=== PATIENT | female | born 1970 | race Caucasian/White ===

== ENCOUNTER 2019-12-22 15:55 | Outpatient (CLI) | payer OTHER, SELFPAY ==
--- NOTE | ~2019-12-22 | US_ITS ---
EXAMINATION: US thyroid EXAM DATE: 12/22/2019 16:40 INDICATION: Follow-up thyroid nodule. TECHNIQUE: Multiple grayscale and Doppler images of the thyroid were obtained (by a technologist who performed the scan) and subsequently reviewed. Individual nodules may be reported using TI-RADS syst em as designated by the 2017 ACR White Paper TI-RADS committee. There is no prior study for comparis on. FINDINGS: The right thyroid lobe measures 1.2 x 3.5 x 0.7 cm, the left measuring 0.9 x 3.1 x 0.6 cm. Relatively homogeneous thyroid echogenicity. The measurements are within normal size limits. There is a right thyroid lobe midpole measuring 5 x 4 x 4 millimeters, solid (2 points), hyperechoic (1 point), wider than tall, smooth margin, containing punctate echogenic foci (3 points), category TR 4 for this nodule. On previous study there was a much larger heterogeneous region in this location m easuring 2.2 cm which is no longer identified, or there has been significant interval decrease in siz e of that nodule which is now a nodule present today. IMPRESSION: 1. Small right thyroid lobe nodule requiring no further follow-up. Reviewed, dictated and finalized at location B. [employer]
== END 2019-12-22 15:56 | disposition home or self-care (01) ==
PROVIDERS: Visit Provider Otolaryngology
DX: E04.9 Nontoxic goiter, unspecified (principal)
CPT/HCPCS: 76536

== ENCOUNTER 2019-12-26 12:11 | Outpatient (CLI) | payer OTHER, SELFPAY ==
[2019-12-26 14:03] LABS: Free T4 Free Thyroxine 0.96 ng/mL (0.78-2.19)
[2019-12-26 15:13] LABS: Free T4 Free Thyroxine Reflex 0.93 ng/dL (0.78-2.19)
[2019-12-26 16:02] LABS: Total Triiodothyronine (T3) 0.96 NG/ML (0.97-1.69)
[2019-12-29 03:29] LABS: Thyroid Peroxidase Antibodies <1 IU/mL (<9)
[2019-12-29 19:56] LABS: Triiodothyronine T3 Free 2.4 pg/mL (2.3-4.2)
== END 2019-12-26 12:12 | disposition home or self-care (01) ==
PROVIDERS: Visit Provider Otolaryngology
DX: E04.9 Nontoxic goiter, unspecified (principal)
CPT/HCPCS: 36415; 84439; 84443; 84480; 84481; 86376

== ENCOUNTER 2022-02-21 10:02 | Emergency (ER) | payer OTHER, SELFPAY ==
[2022-02-21 10:15] VITALS: BP 125/66; PULSE 61; RESP 18; TEMP 36.4; O2SAT 100
--- NOTE | 2022-02-21 10:33 | ED.URI ---
HPI - URI/Sore Throat General Chief Complaint: Upper Respiratory Infection Stated Complaint: sorethroat Source: patient Mode of arrival: ambulatory Limitations: no limitations History of Present Illness HPI Narrative: 51-year-old female presents to [facility] with complaints of sore throat, postnasal drip and dry cough for the past 3 days. Patient has been taking [id number] ibuprofen and Tylenol with minimal relief. Patient reports that she does have a history of strep throat. 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 Patient denies fever, bodies, chills, nausea, vomiting or diarrhea. Patient is a non-smoker. Patient denies recent travel. MD elicited complaint: cough and sore throat Onset (ago): day(s) (3) Able to tolerate fluids by mouth: Yes Treatments prior to arrival: acetaminophen and ibuprofen Related Data Allergies Allergy/AdvReac Type Severity Reaction Status Date / Time Penicillins Allergy Unknown Rash Verified 02/21/22 10:27 Quinolones Allergy Unknown HIVES Verified 02/21/22 10:27 vancomycin Allergy Unknown ITCHEY Verified 02/21/22 10:27 Review of Systems ENT: Denies dysphagia, Denies dizziness, Denies nasal congestion and Reports sore throat Comments: Postnasal drip Cardiovascular: Cardiovascular: Denies chest pain, Denies rapid heart rate and Denies slow heart rate Respiratory: Respiratory: Denies chest congestion, Reports cough, Denies dyspnea and Denies wheezing Gastrointestinal: Gastrointestinal: Denies abdominal pain, Denies diarrhea, Denies nausea and Denies vomiting Integumentary/Breasts: Skin/Breast: Denies rash Endocrine: Endocrine: Denies fatigue PMFSH Family History Family History Mother Hypertension Family history of hypothyroidism Father Family history of elevated blood lipids Family history of cardiovascular disease Social History Social History Smoking status: Never smoker Alcohol intake: current Comments At time of signature, I agree with nursing past medical, surgical, social and family history. There is no relevant family history pertinent to the presenting complaint. Exam Const: General: no acute distress and alert Nutritional Appearance: well nourished Orientation/consciousness: patient oriented x3 HENMT: Ears: external ears normal, TM's normal bilaterally and EAC's normal General nose exam: Normal nares present Mouth: Yes Normal oral and palatal mucosa present, Yes lip normal and Yes moist mucous membranes Teeth and gingiva: dentition normal Throat: uvula midline Other: No swelling or exudate noted to tonsils. Posterior pharynx is erythematous. No swelling noted. Neck: Neck: normal visual inspection Resp: Effort & Inspection: normal respiratory effort, not labored, not tachypneic and no use of accessory muscles Auscultation: clear to auscultation bilaterally Cardio: Rate: regular rate, not bradycardic and not tachycardic Rhythm: regular rhythm Skin: General skin exam: normal color Rashes: no rashes Wounds: no wounds Neuro: General: patient oriented x3, moves all extremities and no meningeal signs Psych: Appearance: grossly normal Mental Status: mental status grossly normal Affect: normal affect Attitude: cooperative Thought content: Yes Normal thought content present Course Course Level of Care: Express Care Visit Vital Signs Vital signs: Vital Signs Temperature 36.4 C 02/21/22 10:15 Pulse Rate 61 02/21/22 10:15 Respiratory Rate 18 02/21/22 10:15 Blood Pressure 125/66 02/21/22 10:15 Pulse Oximetry 100 02/21/22 10:15 Temperature 36.4 C 02/21/22 10:15 Pulse Rate 61 02/21/22 10:15 Respiratory Rate 18 02/21/22 10:15 Blood Pressure 125/66 02/21/22 10:15 Pulse Oximetry 100 02/21/22 10:15 MDM - URI/Sore Throat MDM Narrative Medical decision making narrative: Rapid strep was
== END 2022-02-21 10:41 | disposition home or self-care (01) ==
PROVIDERS: Emergency Provider Nurse Practitioner Family
DX: J02.9 Acute pharyngitis, unspecified (principal)
CPT/HCPCS: 87081; 87880; 99213; G0463

== ENCOUNTER 2022-09-12 10:01 | Emergency (ER) | payer OTHER, SELFPAY ==
--- NOTE | 2022-09-12 10:11 | ED.URI ---
HPI - URI/Sore Throat General Chief Complaint: Upper Respiratory Infection Stated Complaint: Cough,Bilateral Ear Irritation Time Seen by Provider: 09/12/22 10:15 Source: patient and RN notes reviewed Mode of arrival: ambulatory Limitations: no limitations History of Present Illness HPI Narrative: 51-year-old female presenting for complaint of sinus congestion and drainage, cough, and bilateral ear pressure for 10 days. Endorses cough has been worsening and is productive of green sputum. Denies Shortness of breath, wheezing, nausea, vomiting, diarrhea, fevers or chills. She is taking Motrin and using nasal rinses for symptoms. MD elicited complaint: cough Related Data Home Medications Medication Instructions Recorded Confirmed estradiol-norethindrone acet 0.5 1 tablet PO DAILY 09/12/22 09/12/22 mg-0.1 mg tablet Allergies Allergy/AdvReac Type Severity Reaction Status Date / Time Penicillins AdvReac Mild Rash Verified 09/12/22 10:04 Quinolones AdvReac Mild HIVES Verified 09/12/22 10:04 vancomycin AdvReac Mild ITCHEY Verified 09/12/22 10:04 Review of Systems Review of Systems: ROS per HPI PMFSH Family History Family History Mother Hypertension Family history of hypothyroidism Father Family history of elevated blood lipids Family history of cardiovascular disease Social History Social History Smoking status: Never smoker Alcohol intake: current Drinks per week: 2 Substance use type: does not use Exam Narrative: GENERAL: Ill-appearing, nontoxic EYES: PERRLA, conjunctivae clear ENT: Mucous membranes moist. TMs pearly mendoza with dull light reflex bilaterally; no tragal tenderness. Oropharynx erythematous without lesions or exudate, no drooling, no hoarseness, no trismus, uvula midline. CHEST: Clear to auscultation, breath sounds equal. Frequent harsh nonproductive cough HEART: Regular rate and rhythm. No murmur heard. SKIN: Warm, dry, no rash. NEURO: Alert and oriented x3. PSYCH: Normal mood and affect Course Course Emergency Course: Patient is aware of diagnosis, understands and agrees to treatment plan. Anticipatory guidance given. Patient agrees to follow-up as directed and is aware of reasons to seek care at the emergency department. Portions of this record may have been created with voice recognition software Level of Care: Express Care Visit Vital Signs Vital signs: Vital Signs Temperature 97.5 F L 09/12/22 10:13 Pulse Rate 65 09/12/22 10:13 Respiratory Rate 18 09/12/22 10:13 Blood Pressure 122/69 09/12/22 10:13 Pulse Oximetry 100 09/12/22 10:13 Oxygen Delivery Room Air 09/12/22 10:13 Temperature 97.5 F L 09/12/22 10:13 Pulse Rate 65 09/12/22 10:13 Respiratory Rate 18 09/12/22 10:13 Blood Pressure 122/69 09/12/22 10:13 Pulse Oximetry 100 09/12/22 10:13 Oxygen Delivery Room Air 09/12/22 10:13 reviewed MDM - URI/Sore Throat MDM Narrative Medical decision making narrative: Advised supportive measures and signs/symptoms to go to the ER. Pt is appropriate for outpt treatment and f/u. Differential Diagnosis Differential diagnosis: Likely upper respiratory infection, sinusitis and viral infection Discharge Plan Discharge Clinical Impression: Upper respiratory infection Patient Disposition: Home, Self-Care Condition: Stable Instructions: Antibiotic Form, Sinusitis (ED), Acute Bronchitis (ED) Additional Instructions: take medication as directed Recommend Flonase spray and Zyrtec (or Claritin/Ce) over the counter Cough syrup may cause drowsiness; avoid driving or take it at night time. Benzonatate as needed for cough Tylenol 1000mg every 8 hours as needed for pain Symptomatic treatment includes: rest, fluids, and increase humidity of the air at home. Follow up with your primary care provider
[2022-09-12 10:13] VITALS: BP 122/69; PULSE 65; RESP 18; TEMP 36.4; O2SAT 100
== END 2022-09-12 10:26 | disposition home or self-care (01) ==
PROVIDERS: Emergency Provider Nurse Practitioner Family
DX: J06.9 Acute upper respiratory infection, unspecified (principal)
CPT/HCPCS: 99213; G0463

== ENCOUNTER 2022-09-17 00:53 | Day surgery (SDC) | payer OTHER, SELFPAY ==
[2022-09-08 15:22] VITALS: BMI 26.4
--- NOTE | 2022-09-16 15:19 | PM.HPGS ---
History of Present Illness History of Present Illness Consent: Risks, benefits, and alternatives have been discussed and questions answered. Patient agrees to proceed with procedure. Chief complaint: change in bowel habits Narrative: Gloria Sorensen is a 51 year old female referred for colonoscopy. She has had change in bowel habits. Her stools vary in consistency from very hard to very soft. She also has had discomfort in the pelvic area. Her last colonoscopy was about 4 years ago she was advised to have 1 within a couple of years because the prep was not adequate. Review of Systems Review of Systems: All systems reviewed & are unremarkable except as noted in HPI and below PMFSH Past Medical History Medical History Overweight (BMI 25.0-29.9) Family History Family History Mother Hypertension Family history of hypothyroidism Father Family history of elevated blood lipids Family history of cardiovascular disease Social History Social History Smoking status: Never smoker Alcohol intake: current Drinks per week: 2 Substance use type: does not use Living arrangements: with family Meds Home Medications and Allergies Home Medications Medication Instructions Recorded Confirmed Type duloxetine 30 mg capsule,delayed 30 mg PO DAILY #90 caps 09/28/19 09/12/22 Rx release pantoprazole 40 mg tablet,delayed 40 mg PO DAILY #90 tabs 09/28/19 09/12/22 Rx release loratadine 10 mg tablet (Claritin) 10 mg PO DAILY #30 tabs 02/21/22 09/12/22 Rx benzonatate 200 mg capsule 200 mg PO TID PRN cough #20 caps 09/12/22 09/17/22 Rx doxycycline hyclate 100 mg tablet 100 mg PO BID 5 days #10 tabs 09/12/22 09/17/22 Rx estradiol-norethindrone acet 0.5 1 tablet PO DAILY 09/12/22 09/17/22 History mg-0.1 mg tablet prednisone 20 mg tablet 40 mg PO DAILY 5 days #10 tabs 09/12/22 09/17/22 Rx Allergies Allergy/AdvReac Type Severity Reaction Status Date / Time Penicillins AdvReac Mild Rash Verified 09/17/22 09:23 Quinolones AdvReac Mild HIVES Verified 09/17/22 09:23 vancomycin AdvReac Mild ITCHEY Verified 09/17/22 09:23 Exam Resp: Auscultation: clear to auscultation bilaterally Cardio: Rate: regular rate Rhythm: regular rhythm GI: GI Palp: Yes Soft to palpation and No Tenderness to palpation present (GI) Assessment and Plan Assessment and plan (1) Change in bowel habits: Code(s): R19.4 - Change in bowel habit Status: Acute Assessment and Plan: Colonoscopy with possible biopsy or polypectomy or cautery or injection of substances.
[2022-09-17 09:24] VITALS: BP 125/79; PULSE 71; RESP 20; TEMP 36.2; O2SAT 100; BMI 26.9
--- NOTE | 2022-09-17 09:26 | WPDANESEPPF ---
Anes - Initial Pre Proc Eval Procedure: Operation Date: 09/17/22 10:45 Proposed Procedures p Colonoscopy - Khadar Reid MD Date/Time: 09/17/22 09:26 Surgeon: Khadar Reid MD Pre Op Diagnosis: change in bowel habits Patient Data Age: 51 Gender: F Height: 1.63 m Weight: 70 kg Allergies Allergy/AdvReac Type Severity Reaction Status Date / Time Penicillins AdvReac Mild Rash Verified 09/17/22 09:23 Quinolones AdvReac Mild HIVES Verified 09/17/22 09:23 vancomycin AdvReac Mild ITCHEY Verified 09/17/22 09:23 Home Medications Medication Instructions Recorded Confirmed Type duloxetine 30 mg capsule,delayed 30 mg PO DAILY #90 caps 09/28/19 09/12/22 Rx release pantoprazole 40 mg tablet,delayed 40 mg PO DAILY #90 tabs 09/28/19 09/12/22 Rx release loratadine 10 mg tablet (Claritin) 10 mg PO DAILY #30 tabs 02/21/22 09/12/22 Rx benzonatate 200 mg capsule 200 mg PO TID PRN cough #20 caps 09/12/22 09/17/22 Rx doxycycline hyclate 100 mg tablet 100 mg PO BID 5 days #10 tabs 09/12/22 09/17/22 Rx estradiol-norethindrone acet 0.5 1 tablet PO DAILY 09/12/22 09/17/22 History mg-0.1 mg tablet prednisone 20 mg tablet 40 mg PO DAILY 5 days #10 tabs 09/12/22 09/17/22 Rx Patient hx anesthesia problems: none Family hx anesthesia problems: none Results Review: All pre-operative results and documents have been reviewed as part of the pre-operative evaluation. [facility] Past Medical History Medical History (Updated 09/17/22 @ 09:27 by Sven Webster MD) Overweight (BMI 25.0-29.9) Family History Family History Mother Hypertension Family history of hypothyroidism Father Family history of elevated blood lipids Family history of cardiovascular disease Social History Social History Smoking status: Never smoker Alcohol intake: current Drinks per week: 2 Substance use type: does not use Living arrangements: with family Heriberto Gaston Final PreProcedure Day of Procedure 09/17/22 09:26 Patient weight: overweight Heart: regular rate and rhythm Lungs: clear to auscultation and normal air movement Airway: Mallampati scale class II Neurological: alert and oriented Last oral intake: >/= 8 hours ASA classification: II Emergent: no Anesthetic plan: proceed Anesthesia type and monitoring: general GIVS Results Review: All pre-operative results and documents have been reviewed as part of the pre-operative evaluation. Informed Consent: The patient's anesthetic plan and its attendant risks and benefits were discussed with the patient/family/POA. Questions were solicited and answers provided to the satisfaction of the patient/family/POA.
[2022-09-17] MEDS: LACTATED RINGERS 1,000 ML 150 ML IV CONT (09:39)
[2022-09-17] MEDS: SIMETHICONE ORAL SUSPENSION 20 MG/0.3 ML 30 ML BOTTLE 0.6 ML IRRIGATION (10:07)
[2022-09-17 10:16] VITALS: BP 122/80; PULSE 69; RESP 20; O2SAT 100
[2022-09-17 10:26] VITALS: BP 124/75; PULSE 66; RESP 16; O2SAT 100
[2022-09-17 10:36] VITALS: BP 136/75; PULSE 52; RESP 16; O2SAT 100
== END 2022-09-17 10:51 | disposition home or self-care (01) ==
PROVIDERS: Visit Provider Internal Medicine Gastroenterology
PROC: 0DJD8ZZ Inspection of Lower Intestinal Tract, Via Natural or Artificial Opening Endoscopic (ICD-10-PCS; CPT 45378; principal; 2022-09-17 10:45)
DX: R19.7 Diarrhea, unspecified (principal); K59.00 Constipation, unspecified; K63.5 Polyp of colon
CPT/HCPCS: 45385; 88305; J2704; J7120

== ENCOUNTER 2022-11-05 08:02 | Emergency (ER) | payer OTHER, SELFPAY ==
--- NOTE | ~2022-11-05 | XR_ITS ---
EXAMINATION: XR chest 2V DATE: 11/05/2022 08:31 INDICATION: Cough and wheezing TECHNIQUE: PA and lateral views of the chest are obtained. COMPARISON: None available FINDINGS: There are airspace opacities of the left lower lobe. No pleural effusion or pneumothorax. T he cardiomediastinal silhouette is normal. There is mild thoracic spondylosis. Bilateral breast impla nts are noted. Surgical clips in the right upper quadrant are likely from prior cholecystectomy. IMPRESSION: 1. Left lower lobe airspace opacities, consistent with atelectasis versus pneumonia. Reviewed, dictated and finalized at location B. SION CHAIR IMPRESSION: 1. Left lower lobe airspace opacities, consistent with atelectasis versus pneum onia.
[2022-11-05 08:13] VITALS: BP 125/83; PULSE 79; RESP 18; TEMP 36.9; O2SAT 99
--- NOTE | 2022-11-05 08:16 | ED.URI ---
HPI - URI/Sore Throat General Chief Complaint: Upper Respiratory Infection Stated Complaint: Cough,Back Pain,Wheezing,Chest Pain Time Seen by Provider: 11/05/22 08:17 Source: patient Mode of arrival: ambulatory Limitations: no limitations History of Present Illness HPI Narrative: 51-year-old female presents with complaint of cough, chest congestion, shortness of breath with exertion, fatigue. Reports that last week she thinks that she had influenza. Had fever that has since resolved. Cannot get rid of cough. Reports history of pneumonia and bronchitis. States she feels like she cannot get a full breath. Also complaining of back pain with coughing. All systems reviewed and negative except as noted above. Related Data Home Medications Medication Instructions Recorded Confirmed estradiol-norethindrone acet 0.5 1 tablet PO DAILY 09/12/22 11/05/22 mg-0.1 mg tablet Allergies Allergy/AdvReac Type Severity Reaction Status Date / Time Penicillins AdvReac Mild Rash Verified 11/05/22 08:13 Quinolones AdvReac Mild HIVES Verified 11/05/22 08:13 vancomycin AdvReac Mild ITCHEY Verified 11/05/22 08:13 Review of Systems Review of Systems: CONSTITUTIONAL: Denies fever, chills, or sweats. EYES: Denies visual changes, redness, or discharge. ENT: Denies rhinorrhea, congestion, sore throat, or otalgia. CARDIOVASCULAR: Denies chest pain, palpitations, or edema. RESPIRATORY: Reports cough shortness of breath with exertion. GASTROINTESTINAL: Denies abdominal pain, nausea, vomiting, or diarrhea. GENITOURINARY: Denies dysuria or hematuria. SKIN: Denies rash or itching. MUSCULOSKELETAL: Denies back pain, joint pain, or myalgia. NEUROLOGIC: Denies headache, numbness, or weakness. PSYCHIATRIC: Denies anxiety or depression. All other systems reviewed are negative, except as documented in HPI. [facility] Past Medical History Medical History Overweight (BMI 25.0-29.9) Family History Family History Mother Hypertension Family history of hypothyroidism Father Family history of elevated blood lipids Family history of cardiovascular disease Social History Social History (Reviewed 09/12/22 @ 10:27 by RODGER Michael Smoking status: Never smoker Alcohol intake: current Drinks per week: 2 Substance use type: does not use Comments At time of signature, agree with nursing past medical, surgical, social and family history. There is no relevant family history pertinent to the presenting complaint. Exam Narrative: GENERAL: This is a well-nourished, well-developed patient, in no apparent distress. HEAD: normocephalic, atraumatic. EYES: PERRL. Sclera clear/white. Vision is grossly intact. EARS: External ears normal, auditory canals clear and without drainage, TMs normal without perforation. Hearing grossly intact. NOSE: External nose normal with no obvious nasal discharge, nares without redness, no rhinorrhea. THROAT: Mucous membranes moist, posterior pharynx clear. NECK: Neck supple, non-tender without lymphadenopathy, masses or thyromegaly. CARDIOVASCULAR: Regular rate and rhythm without murmurs, gallops, or rubs. RESPIRATORY: Course throughout All lung richardson. no wheezing. SKIN: warm, Dry, intact with no suspicious lesions or rash, good texture and turgor. NEURO: awake, alert, and oriented to person, place and time. There were no obvious focal neurologic abnormalities. EXTREMITIES: No joint tenderness, effusion, or edema noted. Course Course Level of Care: Express Care Visit Vital Signs Vital signs: Vital Signs Temperature 36.9 C 11/05/22 08:13 Pulse Rate 79 11/05/22 08:13 Respiratory Rate 18 11/05/22 08:13 Blood Pressure 125/83 11/05/22 08:13 Pulse Oximetry 99 11/05/22 08:13 Oxygen Delivery Room Air 11/05/22 08:13 Temperature 36.9 C 11/05/22 08:13 Pulse Rate 79 01
== END 2022-11-05 08:57 | disposition home or self-care (01) ==
PROVIDERS: Emergency Provider Nurse Practitioner Family
DX: J18.9 Pneumonia, unspecified organism (principal)
CPT/HCPCS: 71046; 99213; G0463

== ENCOUNTER 2024-08-22 14:36 | Emergency (ER) | payer OTHER, SELFPAY ==
--- NOTE | ~2024-08-22 | XR_ITS ---
EXAMINATION: XR chest 2V DATE: 08/22/2024 15:17 INDICATION: Cough and chest congestion TECHNIQUE: PA and lateral views of the chest were obtained. COMPARISON: Chest radiograph dated 11/05/2022 FINDINGS: Focal airspace opacity along the anteromedial right hemidiaphragm on the frontal projection which manuel ears to correspond to small amount of fat along the inferior aspect of the major fissure on the later al projection. No other airspace opacities, pulmonary edema, pleural effusion or pneumothorax. The ca rdiomediastinal silhouette is normal. Cholecystectomy clips in right upper quadrant. IMPRESSION: 1. No acute cardiopulmonary disease. Reviewed, dictated and finalized at location A.
[2024-08-22 14:45] VITALS: BP 125/71; PULSE 87; RESP 15; TEMP 36.6; O2SAT 99
--- NOTE | 2024-08-22 15:00 | ED_ITS ---
HPI - URI/Sore Throat General Chief Complaint: Upper Respiratory Infection Stated Complaint: Cough/Fever/Back Pain Time Seen by Provider: 08/22/24 15:01 Source: patient Mode of arrival: ambulatory Limitations: no limitations History of Present Illness HPI Narrative: 53 yo F presents with c/o cough and chest congestion for 4 to 5 days. Had low grade fever that resolved. Today has low grade fever again and some aching to back. Is concerned for pneumonia. All systems reviewed and negative except as noted above. Related Data Home Medications Medication Instructions Recorded Confirmed estradiol-norethindrone acet 0.5 1 tablet PO DAILY 09/12/22 08/22/24 mg-0.1 mg tablet levothyroxine 25 mcg tablet 25 mcg PO DAILY 08/22/24 08/22/24 Allergies Allergy/AdvReac Type Severity Reaction Status Date / Time Penicillins AdvReac Mild Rash Verified 08/22/24 14:55 Quinolones AdvReac Mild HIVES Verified 08/22/24 14:55 vancomycin AdvReac Mild ITCHEY Verified 08/22/24 14:55 Review of Systems Review of Systems: CONSTITUTIONAL: Reports fever. Denies chills, or sweats. EYES: Denies visual changes, redness, or discharge. ENT: Denies rhinorrhea, congestion, sore throat, or otalgia. CARDIOVASCULAR: Denies chest pain, palpitations, or edema. RESPIRATORY: Reports cough chest congestion. Denies dyspnea. GASTROINTESTINAL: Denies abdominal pain, nausea, vomiting, or diarrhea. GENITOURINARY: Denies dysuria or hematuria. SKIN: Denies rash or itching. MUSCULOSKELETAL: Denies back pain, joint pain, or myalgia. NEUROLOGIC: Denies headache, numbness, or weakness. PSYCHIATRIC: Denies anxiety or depression. All other systems reviewed are negative, except as documented in HPI. [facility] Past Medical History Medical History Overweight (BMI 25.0-29.9) Family History Family History Mother Hypertension Family history of hypothyroidism Father Family history of elevated blood lipids Family history of cardiovascular disease Social History Social History Smoking status: Never smoker Alcohol intake: current Drinks per week: 2 Substance use type: does not use Living arrangements: with family Comments At time of signature, agree with nursing past medical, surgical, social and family history. There is no relevant family history pertinent to the presenting complaint. Exam Narrative: GENERAL: This is a well-nourished, well-developed patient, in no apparent distress. HEAD: normocephalic, atraumatic. EYES: PERRL. Sclera clear/white. Vision is grossly intact. EARS: External ears normal, auditory canals clear and without drainage, TMs normal without perforation. Hearing grossly intact. NOSE: External nose normal with no obvious nasal discharge, nares without redness, no rhinorrhea. THROAT: Mucous membranes moist, posterior pharynx clear. NECK: Neck supple, non-tender without lymphadenopathy, masses or thyromegaly. CARDIOVASCULAR: Regular rate and rhythm without murmurs, gallops, or rubs. RESPIRATORY: Mildly diminished to bilateral lung richardson otherwise clear. Breath sounds equal bilaterally. No wheezes, rales, or rhonchi. SKIN: warm, Dry, intact with no suspicious lesions or rash, good texture and turgor. NEURO: awake, alert, and oriented to person, place and time. There were no obvious focal neurologic abnormalities. EXTREMITIES: No joint tenderness, effusion, or edema noted. Course Course Level of Care: Express Care Visit Vital Signs Vital signs: Vital Signs Temperature 36.6 C 08/22/24 14:45 Pulse Rate 87 08/22/24 14:45 Respiratory Rate 15 08/22/24 14:45 Blood Pressure 125/71 08/22/24 14:45 Pulse Oximetry 99 08/22/24 14:45 Oxygen Delivery Room Air 08/22/24 14:45 Temperature 36.6 C 08/22/24 14:45 Pulse Rate 87 08/22/24 14:45 Respiratory Rate 15 08/22/24 14:45 Blood Pressure 125/71 08/22/24 14:45 Pulse Oximetry 99 08/22/24 14:45 Oxygen Delivery Room Air 08/22/24 14:50 Reviewed MDM - URI/Sore Throat MDM Narrative Medical decision making narrative: Chest x-ray negative for pneumonia. Recommend patient continue [id number] medications to treat symptoms. Patient is aware of diagnosis, understands and agrees to treatment plan. Anticipatory guidance given. Patient agrees to follow-up as directed and is aware of reasons to seek care at the emergency department. Portions of this record may have been created with voice recognition software Differential Diagnosis Differential diagnosis: Likely upper respiratory infection, sinusitis, viral infection, bronchitis and influenza Imaging Data My impression: Agree with radiologist Radiologist's impression: EXAMINATION: XR chest 2V DATE: 08/22/2024 15:17 INDICATION: Cough and chest congestion TECHNIQUE: PA and lateral views of the chest were obtained. COMPARISON: Chest radiograph dated 11/05/2022 FINDINGS: Focal airspace opacity along the anteromedial right hemidiaphragm on the frontal projection which appears to correspond to small amount of fat along the inferior aspect of the major fissure on the lateral projection. No other airspace opacities, pulmonary edema, pleural effusion or pneumothorax. The cardiomediastinal silhouette is normal. Cholecystectomy clips in right upper quadrant. IMPRESSION: 1. No acute cardiopulmonary disease. Discharge Plan Discharge Clinical Impression: Viral upper respiratory tract infection with cough Patient Disposition: Home, Self-Care Condition: Stable Instructions: Upper Respiratory Infection (DC) Additional Instructions: Your chest x-ray was negative for pneumonia today. Take medications as prescribed. Drink at least 64 oz of water a day. Drink hot tea with honey to soothe throat and treat cough. Follow-up your primary care physician if symptoms are not improving. Prescriptions: New benzonatate 200 mg capsule 200 mg PO TID PRN (Reason: cough) Qty: 20 0RF methylprednisolone [Medrol (Arnold)] 4 mg tablets,dose pack See Rx Instructions PO .COMPLEX Qty: 21 0RF Rx Instructions: orally per package directions No Action estradiol-norethindrone acet 0.5-0.1 mg tablet 1 tablet PO DAILY (DME) Aerochamber Plus Z Stat Spacer See Rx Instructions .Route Qty: 1 0RF Rx Instructions: As directed methylprednisolone [Medrol (Arnold)] 4 mg tablets,dose pack See Rx Instructions PO .COMPLEX Qty: 21 0RF Rx Instructions: orally per package directions loratadine [Claritin] 10 mg tablet 10 mg PO DAILY Qty: 30 0RF levothyroxine 25 mcg tablet 25 mcg PO DAILY duloxetine 30 mg capsule,delayed release(DR/EC) 30 mg PO DAILY Qty: 90 0RF pantoprazole 40 mg tablet,delayed release (DR/EC) 40 mg PO DAILY Qty: 90 0RF Follow-up/Referrals: PHYSICIAN,GERMINATION TESTING MANAGER [Primary Care Provider] - Time of Disposition: 15:38
== END 2024-08-22 15:44 | disposition home or self-care (01) ==
PROVIDERS: Emergency Provider Nurse Practitioner Family
DX: J06.9 Acute upper respiratory infection, unspecified (principal); R05.9 Cough, unspecified
CPT/HCPCS: 71046; 99213; G0463

== ENCOUNTER 2024-12-30 08:06 | Emergency (ER) | payer OTHER, SELFPAY ==
--- NOTE | 2024-12-30 08:24 | ED_ITS ---
HPI - URI/Sore Throat General Chief Complaint: Upper Respiratory Infection Stated Complaint: pain on rt side of face/drainage/sore throat Time Seen by Provider: 12/30/24 08:23 Source: patient Mode of arrival: ambulatory Limitations: no limitations History of Present Illness HPI Narrative: Patient is a 54-year-old female who presents with 6 days of sinus pain and pressure, postnasal drainage, sore throat. Reports right-sided ear and neck pain started yesterday. Patient states she has had similar symptoms like this in the past and was diagnosed with Davila's palsy. Patient has been taking Flonase. Patient took 800 mg of ibuprofen this morning which moderately reduced pain. Denies any fever, chills, nausea, vomiting, diarrhea. Related Data Home Medications ?Medication ?Instructions ?Recorded ?Confirmed ?Last Taken ?Type estradiol-norethindrone acet 0.5 1 tablet PO DAILY 09/12/22 08/22/24 09/16/22 History mg-0.1 mg tablet levothyroxine 25 mcg tablet 25 mcg PO DAILY 08/22/24 08/22/24 Unknown History Allergies Allergy/AdvReac Type Severity Reaction Status Date / Time Penicillins AdvReac Mild Rash Verified 12/30/24 08:39 Quinolones AdvReac Mild HIVES Verified 12/30/24 08:39 vancomycin AdvReac Mild Itching Verified 12/30/24 08:39 Review of Systems Review of Systems: All systems reviewed & are unremarkable except as noted in HPI and below Constitutional: Constitutional: Denies chills, Denies fatigue, Denies fever(s), Denies headache(s), Denies malaise and Denies weakness Eyes: Eyes: Denies blurry vision, Denies itchy eyes and Denies loss of vision ENT: Denies otalgia, Denies headache(s), Reports nasal congestion, Denies sinus pain and Reports sore throat Cardiovascular: Cardiovascular: Denies chest pain, Denies irregular heart rhythm and Denies dyspnea Respiratory: Respiratory: Reports cough and Denies dyspnea Gastrointestinal: Gastrointestinal: Denies abdominal pain, Denies diarrhea, Denies nausea and Denies vomiting Musculoskeletal: Musculoskeletal: Denies back pain, Denies myalgias and Denies arthralgias Integumentary/Breasts: Skin/Breast: Denies pruritus and Denies rash Neurologic: Denies headache(s), Denies loss of vision and Denies weakness Psychiatric: Psychiatric: Reports no additional psychiatric complaints Endocrine: Endocrine: Denies fatigue Allergic/Immunologic: Allergic/Immunologic: Denies itchy eyes PMFSH Past Medical History Medical History Overweight (BMI 25.0-29.9) Family History Family History Mother Hypertension Family history of hypothyroidism Father Family history of elevated blood lipids Family history of cardiovascular disease Social History Social History Smoking status: Never smoker Alcohol intake: current Drinks per week: 2 Substance use type: does not use Living arrangements: with family Comments At time of signature, agree with nursing past medical, surgical, social and family history. There is no relevant family history pertinent to the presenting complaint. Exam Const: General: cooperative, healthy appearing, comfortable, no acute distress and well nourished Nutritional Appearance: well nourished Orientation/consciousness: patient oriented x3 Limitations: no limitations HENMT: Head: normal to inspection, normocephalic and atraumatic Ears: hearing grossly normal bilaterally, external ears normal, TM's normal bilaterally, EAC's normal and no periauricular adenopathy Face/Nose/Sinus: Normal external nose present, Abnormal mucous membranes and turbinates present erythematous bilateral and diffuse, normal facial exam, face symmetric and Facial tenderness on exam of face and sinuses Face and sinus: normal facial exam and face symmetric Mouth: Yes Normal oral and palatal mucosa present, Yes lip normal, Yes tongue normal, Yes Normal salivary glands and ducts present, Yes oropharynx normal and Yes moist mucous membranes Teeth and gingiva: dentition normal Throat: posterior oropharynx normal, tonsils normal and uvula midline Eyes: General: appearance normal, both eyes and all related structures Alignment and Position: alignment normal and position normal Periorbital: periorbital findings normal Eyelids: eyelids normal Pupils: Equal, round and reactive pupils present Neck: Neck: normal visual inspection, full ROM, no lymphadenopathy and supple Chest: Chest palpation & inspection: normal inspection of the chest and normal palpation of entire chest wall Resp: Effort & Inspection: normal respiratory effort and able to speak in complete sentences Auscultation: clear to auscultation bilaterally, no crackles, no rales, no rhonchi and no wheezes Cardio: Rate: regular rate Rhythm: regular rhythm Heart sounds: S1 normal heart sound present and S2 normal heart sound present GI: Inspection: normal to inspection Skin: General skin exam: normal color and no rashes or lesions noted Neuro: General: patient oriented x3 and moves all extremities Cranial nerves: Yes CN's II-XII intact bilaterally and Yes Equal, round and reactive pupils present Cognition (Neuro): normal cognition Speech: normal speech Gait exam (Neuro): Normal gait present Extrem: General: normal to inspection, full ROM and no edema Psych: Appearance: grossly normal and well kempt Mental Status: mental status grossly normal Speech and movement: Normal speech and movement present Affect: normal affect Attitude: cooperative Thought process: Normal thought process present Course Course Emergency Course: Discharge instructions reviewed with patient, as well as provided in writing per nursing staff. The instructions also include specific and strict return/GO TO THE ER as well as f/u information. All questions have been answered, and the patient deny any further questions with discharge and discharge plan. Portions of this record may have been created with voice recognition software Level of Care: Express Care Visit Vital Signs Vital signs: Vital Signs Temperature 36.3 C L 12/30/24 08:37 Pulse Rate 72 12/30/24 08:37 Respiratory Rate 16 12/30/24 08:37 Blood Pressure 122/78 12/30/24 08:37 Pulse Oximetry 100 12/30/24 08:37 Oxygen Delivery Room Air 12/30/24 08:37 Temperature 36.3 C L 12/30/24 08:37 Pulse Rate 72 12/30/24 08:37 Respiratory Rate 16 12/30/24 08:37 Blood Pressure 122/78 12/30/24 08:37 Pulse Oximetry 100 12/30/24 08:37 Oxygen Delivery Room Air 12/30/24 08:37 Reviewed MDM - URI/Sore Throat MDM Narrative Medical decision making narrative: Pt well hydrated appearing, in no respiratory distress, hemodynamically stable. Recommend supportive care. The patient is stable at time of discharge the clinical impression was discussed and the patient was given the opportunity to ask questions, which were addressed as completely as possible given the information available at present. Anticipatory guidance and return to care precautions were discussed and the importance of primary care follow-up was stressed and encouraged. The patient voiced understanding of the plan, indications to return, and the need for follow-up. Differential diagnosis considered: Bronchitis, Rose virus, strep pharyngitis, allergic rhinitis, upper respiratory tract infection, sinusitis, rhinosinusitis, nasopharyngitis. viral pharyngitis, otitis media, otitis externa, otitis effusion, foreign body, cerumen impaction, viral syndrome, and influenza.? Exam findings show no acute concerns or changes; patient is non-toxic appearing and is in no distress.? Patient is appropriate for outpatient treatment and follow- up.? Medical Records Attestation: I reviewed the patient's medical records. Lab Data Attestation: I reviewed the patient's lab results. Labs: Lab Results 12/30/24 12/30/24 Range/Units 08:51 08:52 POC Influenza A Ag Negative (Negative) POC Influenza B Ag Negative (Negative) POC SARS CoV-2 Ag Negative (Negative) Discharge Plan Discharge Clinical Impression: Sinusitis Qualifiers: Sinusitis location: pansinusitis Chronicity: acute Recurrence: non-recurrent Qualified Code(s): J01.40 - Acute pansinusitis, unspecified Patient Disposition: Home, Self-Care Condition: Stable Instructions: Sinusitis (ED) Additional Instructions: Your Covid and flu are both negative Take steroids in the morning with food. Take antibiotics as prescribed -For pain/fever, you may take: Tylenol 650-1000mg by mouth every 4-6 hours. Do not exceed 4000mg in 24 hours. Advil (Ibuprofen) 600 mg by mouth every 6 hours. Do not exceed 2400mg in 24 hours. 8 AM: Tylenol 11 AM: Ibuprofen 2 PM: Tylenol 5 PM: Ibuprofen 8 PM: Tylenol 11 PM: Ibuprofen 2 AM: Tylenol 5 AM: Ibuprofen -Antihistamine medication such as Benadryl/Zyrtec at night and Claritin/Ce during the day can help improve symptoms. -Use Flonase twice a day for 5 days then daily to help reduce the inflammation and dry up your sinuses. -You can also use Sudafed behind the pharmacy counter(12 or 24 hour). Be sure to drink plenty of water with these medications at least 8 ounces with every dose and it is important to drink 8 to 10 glasses of water per day. Water is a natural decongestant -Eat and drink things that are easy to swallow, like tea or soup, or popsicles. -Oral rinses such as: Salt water gargles and/or may use topical anesthetic (eg. Chloraseptic spray) or lozenges to relieve dryness or throat pain). -Frequent hand washing or hand corporate traffic manager is one of the best ways to prevent spread of infection. -Using a vaporizer or humidifier at night will also help thin secretions and help with coughing up phlegm. Call your Primary Care Doctor and make a follow-up appointment in 3 days. If your cough worsens, you develop a fever greater than 103, you develop shaking chills, a fast heartbeat, trouble breathing and/or feel you are are breathing much faster than usual, call your Primary Care Doctor or go to the ER. Patient Language: Lao Prescriptions: New doxycycline monohydrate 100 mg tablet 100 mg PO BID 7 Days Qty: 14 0RF prednisone 50 mg tablet 50 mg PO DAILY 5 Days Qty: 5 0RF No Action estradiol-norethindrone acet 0.5-0.1 mg tablet 1 tablet PO DAILY (DME) Aerochamber Plus Z Stat Spacer See Rx Instructions .Route Qty: 1 0RF Rx Instructions: As directed methylprednisolone [Medrol (Arnold)] 4 mg tablets,dose pack See Rx Instructions PO .COMPLEX Qty: 21 0RF Rx Instructions: orally per package directions loratadine [Claritin] 10 mg tablet 10 mg PO DAILY Qty: 30 0RF levothyroxine 25 mcg tablet 25 mcg PO DAILY benzonatate 200 mg capsule 200 mg PO TID PRN (Reason: cough) Qty: 20 0RF methylprednisolone [Medrol (Arnold)] 4 mg tablets,dose pack See Rx Instructions PO .COMPLEX Qty: 21 0RF Rx Instructions: orally per package directions duloxetine 30 mg capsule,delayed release(DR/EC) 30 mg PO DAILY Qty: 90 0RF pantoprazole 40 mg tablet,delayed release (DR/EC) 40 mg PO DAILY Qty: 90 0RF Follow-up/Referrals: Delon Dow [Other] - 3 Days Time of Disposition: 09:09
--- OUTSIDE RECORDS SUMMARY | 2024-12-30 08:32 | XMS_ITS | Patient Health Summary ---
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 examination/study. 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
--- OUTSIDE RECORDS SUMMARY | 2024-12-30 08:32 | XMS_ITS | Clinical Summary ---
Author Organization [facility] Address [address] [place] [address] Phone Care Team Providers Care Orderlies Teacher Name Role Phone Unavailable Primary Care Provider Unavailabl e Social History Tobacco Use Types Packs/Day Years Used Date Smoking Tobacco: Never Assessed Comments Unknown Sex and Gender Information Value Date Recorded Sex Assigned at Not on file Legal Sex Female 7:21 PM CDT Gender Identity Not on file Sexual Orientation Not on file Plan of Treatment Not on file
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
--- OUTSIDE RECORDS SUMMARY | 2024-12-30 08:33 | XMS_ITS | Clinical Summary ---
Author Organization [facility] Administrative Offices Address [address] [place] [phone] Care Team Providers Care Medical Radiation Dosimetrist Name Role Phone MkDelon clark Primary Care Provider [phone] Allergies Active Allergy Reactions Criticality Noted Date Comments Penicillins Rash Medium 07/21/2017 Medications Estradiol-Noret hindrone Acet 0.5-0.1 mg Tablet Take 1 Tablet by mouth daily. 3 Active levothyroxine 25 mcg tablet Take 1 Tablet by mouth daily. 4 Active DULoxetine (CYMBALTA) 30 mg Capsule, Delayed Release(E.C.)In dications:KATHLEEN (generalized anxiety disorder) TAKE 1 CAPSULE BY MOUTH DAILY 100 Capsule 3 5 Active pantoprazole (PROTONIX) 40 mg Tablet, Delayed Release (E.C.)Indicatio ns:Gastroesopha geal reflux disease, unspecified whether esophagitis present TAKE 1 TABLET BY MOUTH DAILY 100 Tablet 3 5 Active pantoprazole (PROTONIX) 40 mg Tablet, Delayed Release (E.C.)Indicatio ns:Gastroesopha geal reflux disease, unspecified whether esophagitis present take 1 tablet by mouth daily 100 Tablet 2 4 025 Discontinued DULoxetine (CYMBALTA) 30 mg Capsule, Delayed Release(E.C.)In dications:KATHLEEN (generalized anxiety disorder) take 1 capsule by mouth daily 100 Capsule 2 4 025 Discontinued Active Problems Problem Noted Date Diagnosed Date Mass of thyroid gland 11/10/2024 Irritable bowel syndrome with constipation 01/17 Hyperlipidemia 06/23/2022 Subclinical hypothyroidism 06/23/2022 Gastroesophageal reflux disease 11/18/2019 KATHLEEN (generalized anxiety disorder) 11/18/2019 Resolved Problems Problem Noted Date Diagnosed Date Resolved Date Thyroiditis 11/18/2019 11/19/2020 Encounters Date Type Department Care Team Description 12/27/2024 External Device Data ST[facility] ABSTRACTION Provider, Abstract 12/18/2024 Refill [facility], [place] [address] [place] [place] [address] Karon García APRN KATHLEEN (generalized anxiety disorder); Gastroesophageal reflux disease, unspecified whether esophagitis present 12/13/2024 External Device Data ST[facility] ABSTRACTION Provider, Abstract 12/02/2024 Results Follow-Up [facility], [place] [place] [place] [address] Delon Dow DO MAMMO 3D NITA SCREEN IMPL BILAT W OR WO CAD, LIPID PANEL, HEMOGLOBIN A1C, Additional followed-up results: 4 12/01/2024 5:04 PM MACHINE BOOKKEEPER - 12/01/2024 11:59 PM MACHINE BOOKKEEPER Hospital Encounter [facility] [place] [facility] [address] [facility] [address] [place] [address] Delon Dow, Discharge Disposition: Home or Self Care 11/16/2024 External Device Data [facility] ABSTRACTION Provider, Abstract 11/16/2024 External Device Data [facility] ABSTRACTION Provider, Abstract 11/10/2024 3:00 PM MACHINE BOOKKEEPER Office Visit [facility], [place] [address] [place] [place] [address] Delon Dow DO Encounter for general adult medical examination with abnormal findings (Primary Dx); Subclinical hypothyroidism; Mass of thyroid gland; Irritable bowel syndrome with constipation; Mixed hyperlipidemia; Gastroesophageal reflux disease without esophagitis; KATHLEEN (generalized anxiety disorder); Encounter for screening mammogram for breast cancer; Colon cancer screening; Declined influenza vaccine 11/10/2024 Orders Only [facility], [place] [address] [place] [place] [phone] Khadar Reid MD 11/01/2024 External Device Data [facility] ABSTRACTION Provider, Abstract from Last 3 Months Immunizations Immunization Administration Dates Next Due (SPIKEVAX) (12 YRS UP PRIMAR Y SERIES) COVID-19 VACCINE - [id number]-[id number](PF) 100 MCG/0.5 ML IM SUSP 01/12/2021,12/15/2020 INFLUENZA VACCINE QUADRIVALENT 6 MOS UP IM 11/19 Family History Medical History Relation Name Comments Aneurysm Father Franklin Harbision Heart Disease Father Franklin Harbision Thyroid Disease Father Franklin Harbision Heart Disease Mother Ana Gardner PAF Hypertension Mother Ana Jj Thyroid Disease Mother Ana Jj Heart Disease Sister Yenni Cuellar Stroke Sister Yenni Cuellar Celiac Disease Neg Hx Relation Name Status Comments Father Franklin Harbision Alive Mother Ana Gardner Alive Sister Yenni Cuellar Alive Social History Tobacco Use Types Packs/Day Years Used Date Smoking Tobacco: Never Smokeless Tobacco: Never Tobacco Cessation:Counseling Given: No Alcohol Use Standard Drinks/Week Comments Yes 1 (1 standard drink = 0.6 oz pur e alcohol) Social Comments No Sex and Gender Information Value Date Recorded Sex Assigned at Not on file Legal Sex Female 5:54 AM MACHINE BOOKKEEPER Gender Identity Not on file Sexual Orientation Not on file Last Filed Vital Signs Vital Sign Reading Time Taken Comments Blood Pressure 112/80 11/10/2024 2:49 PM MACHINE BOOKKEEPER Pulse 70 11/10/2024 2:49 PM MACHINE BOOKKEEPER Temperature 36.7 C (98 F) 11/10/2024 2:49 PM MACHINE BOOKKEEPER Respiratory Rate 20 10/24/2020 9:53 AM MACHINE BOOKKEEPER Oxygen Saturation 96% 11/10/2024 2:49 PM MACHINE BOOKKEEPER Inhaled Oxygen Concentration - - Weight 70.8 kg (156 lb) 11/10/2024 2:49 PM MACHINE BOOKKEEPER Height 162.6 cm (5' 4 ) 11/10/2024 2:49 PM MACHINE BOOKKEEPER Body Mass Index 26.78 11/10/2024 2:49 PM MACHINE BOOKKEEPER Plan of Treatment Upcoming Encounters Date Type Department Care Team (Late st Contact Info) Description 01/12/2025 3:20 PM CDT Appointment [facility] [address] [place] [phone] Delon Dow, DO [address] [place] [address] [place] [address] 02/02/2025 1:15 PM CDT Appointment [facility] [address] [place] [phone] Delon Dow, DO [address] [place] [address] [place] [address] 11/09/2025 3:20 PM MACHINE BOOKKEEPER Office Visit [facility] [place] [place] [place] [phone] Delon Dow, DO [address] [place] [address] [place] [address] Health Maintenance Due Date Last Done Comments DTAP/TDAP/TD VACCINES (1 - Tdap) 1988 HEPATITIS B VACCINES (1 of 3 - 19+ 3-dose series) 1988 CERVICAL CANCER SCREENING 1999 FIT-DNA Q 3 years 2014 FIT/FOBT Q 1 year 2014 Flex Sig/CT Colonography Q 5 years 2014 ZOSTER VACCINE (1 of 2) 2019 COVID-19 Vaccine (2023-2 5 season) 2024 01/12/2021, 12/15/2020 BREAST CANCER SCREENING 12/01/2025 12/01/19 25, 11/10/2023, 01/06/2020 Pre-Diabetes and Diabetes Screening 12/01/2027 12/01/2024, 09/29/2023, 01/25/2021, Additional history exists COLORECTAL SCREENING 09/17/2032 09/17/2022 Colorectal Cancer Screening 09/17/2032 INFLUENZA VACCINE Completed 11/10/2024, , 11/10/2023, Additional history exists Preventative Visit- Commercial Completed 0 11/10/2024, 09/29/2023, 11/19/2020, Additional history exists Medical Devices Implanted Type Area Hand Stripper Device Identifier Shelf Expiration Date Model / Serial / Lot Endo Clip Ii 10mm [id number] - [id number] Implanted:Qty : 1 on 10/24/2020 by Ramakrishna Anna MD at [facility] Clip N/A: Abdomen [employer] - COVIDIEN [id number] 11/25/2024 [id number] / / [id number] Procedures Procedure Name Priority Date/Time Associated Diagnosis Comments MAMMO 3D NITA SCREEN IMPL BILAT W OR WO CAD Routine 12/01/2024 5:24 PM MACHINE BOOKKEEPER Encounter for screening mammogram for breast cancer VITAMIN B12 LEVEL Routine 12/01/2024 10: 11 AM MACHINE BOOKKEEPER KATHLEEN (generalized anxiety disorder) TSH REFLEXIVE Routine 12/01/2024 10:11 AM MACHINE BOOKKEEPER Encounter for general adult medical examination with abnormal findings COMPREHENSIVE METABOLIC PANEL Routine 12/01/2024 10:11 AM MACHINE BOOKKEEPER Encounter for general adult medical examination with abnormal findings CBC WITH DIFFERENTIAL Routine 12/01/2024 10:11 AM MACHINE BOOKKEEPER Encounter for general adult medical examination with abnormal findings HEMOGLOBIN A1C Routine 12/01/2024 10:11 AM MACHINE BOOKKEEPER Encounter for general adult medical examination with abnormal findings LIPID PANEL Routine 12/01/2024 10:11 AM MACHINE BOOKKEEPER Encounter for general adult medical examination with abnormal findings ENDOSCOPY, COLON, SCREENING Routine 09/17/2022 3:07 PM MACHINE BOOKKEEPER from Last 3 Months or Most Recently Relevant to Health Maintenance Results * MAMMO 3D NITA SCREEN IMPL BILAT W OR WO CAD (12/01/2024 5:24 PM MACHINE BOOKKEEPER) Anatomical Region Laterality Modality Breast Bilateral Mammography 12/01/2024 5:26 PM MACHINE BOOKKEEPER Impressions 12/02/2024 7:26 AM MACHINE BOOKKEEPER IMPRESSION: No suspicious findings to suggest malignancy in either breast. Annual mammography is recommended. OVERALL FINAL ASSESSMENT: BI-RADS CATEGORY 2 - Benign findings DICTATION LOCATION: [facility] Narrative 12/02/2024 7:26 AM MACHINE BOOKKEEPER BILATERAL SCREENING DIGITAL IMPLANT MAMMOGRAM WITH 3D TOMOSYNTHESIS AND CAD DATE: 12/01/2024 5:24 PM HISTORY: Routine screening. TECHNIQUE: Full-field digital standard and implant displaced craniocaudal and mediolateral oblique projections of both breasts were obtained. Low-dose full-field digital breast tomosynthesis examination was performed with 2D and 3D acquisitions. Examination is read in conjunction with computer aided detection. COMPARISON: 11/10/2023 mammography and older. BREAST COMPOSITION: There are scattered areas of fibroglandular density. FINDINGS: There are bilateral subpectoral saline implants, which limit mammographic sensitivity. No suspicious mass, suspicious microcalcifications, or architectural distortion is identified in either breast. Computer aided detection was used in the interpretation of this examination. Delon Dow DO MAMMO ORDERABLES Final Result * TSH REFLEXIVE (12/01/2024 10:11 AM MACHINE BOOKKEEPER) TSH 2.91 mIU/L [facility] Comment: Reference Range > or = 20 Years 0.40-4.50 Ranges First trimester 0.26-2.66 Second trimester 0.55-2.73 Third trimester 0.43-2.91 FASTING:YES FASTING: YES Test Performed at: [facility] [address] [place] [address] Parker Shields MD Blood 12/01/2024 10:1 1 AM MACHINE BOOKKEEPER 12/01/2024 10:12 AM MACHINE BOOKKEEPER Delon Dow DO CHEMISTRY ORDERABLES Final Resul t [facility] [phone] [facility] [address] [place] [address] * (ABNORMAL) CBC WITH DIFFERENTIAL (12/01/2024 10:11 AM MACHINE BOOKKEEPER) WBC 4.2 3.8 - 10.8 Thousand/u L [facility] RBC 4.62 3.80 - 5.10 Million/uL [facility] HEMOGLOBIN 15.2 11.7 - 15.5 g/dL [facility] HEMATOCRIT 45.5(H) 35.0 - 45.0 % [facility] MCV 98.5 80.0 - 100.0 fL [facility] MCH 32.9 27.0 - 33.0 pg [facility] MCHC 33.4 32.0 - 36.0 g/dL [facility] Comment: For adults, a slight decrease in the calculated MCHC value (in the range of 30 to 32 g/dL) is most likely not clinically significant; however, it should be interpreted with caution in correlation with other red cell parameters and the patient's clinical condition. RDW 12.2 11.0 - 15.0 % [facility] PLATELETS 348 140 - 400 Thousand/u L [facility] MPV 10.4 7.5 - 12.5 fL [facility] NEUTROPHIL ABSOLUTE 2,373 1,500 - 7,800 cells/uL [facility] LYMPHOCYTE ABSOLUTE 1,256 850 - 3,900 cells/uL [facility] MONOCYTE ABSOLUTE 512 200 - 950 cells/uL [facility] EOSINOPHIL ABSOLUTE 29 15 - 500 cells/uL [facility] BASOPHILS ABSOLUTE 29 0 - 200 cells/uL [facility] NEUTROPHIL 56.5 % [facility] LYMPHOCYTES 29.9 % [facility] MONOCYTE 12.2 % [facility] EOSINOPHILS 0.7 % [facility] BASOPHILS 0.7 % [facility] Comment: Test Performed at: [facility] [address] [place] [address] Parker Shields MD Blood 12/01/2024 10:1 1 AM MACHINE BOOKKEEPER 12/01/2024 10:12 AM MACHINE BOOKKEEPER Delon Dow DO HEMATOLOGY ORDERABLES Final Resu lt [facility] [phone] [facility] [address] [facility] [place] [address] * HEMOGLOBIN A1C (12/01/2024 10:11 AM MACHINE BOOKKEEPER) [facility] HEMOGLOBIN A1C 5.4 <5.7 % of total Hgb [facility] [place] Comment: For the purpose of screening for the presence of diabetes: <5.7% Consistent with the absence of diabetes 5.7-6.4% Consistent with increased risk for diabetes (prediabetes) > or =6.5% Consistent with diabetes This assay result is consistent with a decreased risk of diabetes. Currently, no consensus exists regarding use of hemoglobin A1c for diagnosis of diabetes in children. According to [place] Diabetes Association (ADA) guidelines, hemoglobin A1c <7.0% represents optimal control in non- diabetic patients. Different metrics may apply to specific patient populations. Standards of Medical Care in Diabetes(ADA). ESTIMATED AVERAGE GLUCOSE (MG/DL) 108 mg/dL [facility] ESTIMATED AVERAGE GLUCOSE (MMOL/L) 6.0 mmol/L [facility] Comment: FASTING:YES FASTING: YES Test [facility]formed at: [facility] [address] [place] [address] Parker Shields Blood 12/01/2024 10:1 1 AM MACHINE BOOKKEEPER 12/01/2024 10:12 AM MACHINE BOOKKEEPER Delon Dow DO CHEMISTRY ORDERABLES Final Resul t [facility] [phone] [facility] [place] [address] [place] [address] * VITAMIN B12 LEVEL (12/01/2024 10:11 AM MACHINE BOOKKEEPER) [facility] VITAMIN B12 234 200 - 1100 pg/mL [facility] Comment: Please Note: Although the reference range for vitamin B12 is 200-1100 pg/mL, it has been reported that between 5 and 10% of patients with values between 200 and 400 pg/mL may experience neuropsychiatric and hematologic abnormalities due to occult B12 deficiency; less than 1% of patients with values above 400 pg/mL will have symptoms. Test Performed at: [facility] [address] [facility] [place] [address] Parker Shields MD Blood 12/01/2024 10:1 1 AM MACHINE BOOKKEEPER 12/01/2024 10:12 AM MACHINE BOOKKEEPER Delon Dow DO CHEMISTRY ORDERABLES Final Resul t [facility] [phone] [facility] [address] [place] [address] * (ABNORMAL) LIPID PANEL (12/01/2024 10:11 AM MACHINE BOOKKEEPER) CHOLESTEROL 217(H) <200 mg/dL [facility] HDL 56 > OR = 50 mg/dL [facility] TRIGLYCERIDE 89 <150 mg/dL [facility] LDL CALCULATED 142(H) mg/dL (calc) [facility] Comment: Reference range: <100 Desirable range <100 mg/dL for primary prevention; <70 mg/dL for patients with CHD or diabetic patients with > or = 2 CHD risk factors. LDL-C is now calculated using the Roberto-Sheridan calculation, which is a validated novel method providing better accuracy than the Friedewald equation in the estimation of LDL-C. Roberto SS et al. NIKKIE. 2013;310(19): 0049-5272 (http://education.AkesoGenX/faq/ZKT437) CHOL/HDL RATIO 3.9 <5.0 (calc) [facility] NON-HDL CHOLESTEROL 161(H) <130 mg/dL (calc) [facility] Comment: For patients with diabetes plus 1 major ASCVD risk factor, treating to a non-HDL-C goal of <100 mg/dL (LDL-C of <70 mg/dL) is considered a therapeutic option. Test Performed at: [facility] [place] [address] Parker Shields MD Blood 12/01/2024 10:1 1 AM MACHINE BOOKKEEPER 12/01/2024 10:12 AM MACHINE BOOKKEEPER Delon Dow DO CHEMISTRY ORDERABLES Final Resul t [facility] [phone] [facility] [address] [address] [place] [address] * COMPREHENSIVE METABOLIC PANEL (12/01/2024 10:11 AM MACHINE BOOKKEEPER) GLUCOSE 91 65 - 99 mg/dL [facility] Comment: Fasting reference interval BUN 11 7 - 25 mg/dL [facility] CREATININE 0.90 0.50 - 1.03 mg/dL [facility] GFR 76 > OR = 60 mL/min/1. 73m2 [facility] BUN/CREAT RATIO SEE NOTE: 6 - 22 (calc) [facility] Comment: Not Reported: BUN and Creatinine are within reference range. SODIUM 138 135 - 146 mmol/L [facility] POTASSIUM 5.1 3.5 - 5.3 mmol/L [facility] CHLORIDE 102 98 - 110 mmol/L [facility] CO2 27 20 - 32 mmol/L [facility] CALCIUM 9.8 8.6 - 10.4 mg/dL [facility] TOTAL PROTEIN 7.2 6.1 - 8.1 g/dL [facility] ALBUMIN 4.9 3.6 - 5.1 g/dL [facility] GLOBULIN 2.3 1.9 - 3.7 g/dL (calc) [facility] ALBUMIN/GLOBULIN RATIO 2.1 1.0 - 2.5 (calc) [facility] BILIRUBIN TOTAL 0.4 0.2 - 1.2 mg/dL [facility] ALKALINE PHOSPHATASE 37 37 - 153 U/L [facility] AST 17 10 - 35 U/L [facility] ALT 14 6 - 29 U/L [facility] Comment: FASTING:YES FASTING: YES Test Performed at: [facility] [address] [place] [address] Parker Shields MD Blood 12/01/2024 10:1 1 AM MACHINE BOOKKEEPER 12/01/2024 10:12 AM MACHINE BOOKKEEPER us Delon Dow DO CHEMISTRY ORDERABLES Final Resul t [facility] [phone] [facility] [address] [address] [facility] [place] [address] * ENDOSCOPY, COLON, SCREENING (09/17/2022 3:07 PM MACHINE BOOKKEEPER) us Khadar Reid MD GI PROCEDURE ORDERABLES Final Re sult Performing Organization Address City/[facility]/ZIP Co de Phone Number [facility] [id number] [address] [place] [address], [place] [phone] from Last 3 Months or Most Recently Relevant to Health Maintenance Insurance [place] [id number] RX [employer] Member Subscriber Plan / Payer (Ef fective for All Dates) Name:Sandra Sorensen Relation to Subscriber:Self Name:Sandra Sorensen Payer ID:Not on file Group ID:[id number] Type:RX Commercial Address: [address] Advance Directives For more information, please contact: [phone] * Full Code (Latest Code Status on File) Date Activated Date Inactivated Comments 10/24/2020 7:53 AM 10/24/2020 2:44 PM * Full Code Date Activated Date Inactivated Comments 10/24/2020 5:45 AM 10/24/2020 7:52 AM Care Teams Medical Radiation Dosimetrist Relationship Specialty Start Date End Date Delon Dow DO [address] [place] [address] [place] [phone] PCP - General Internal Medicine 11/18/19
[2024-12-30 08:37] VITALS: BP 122/78; PULSE 72; RESP 16; TEMP 36.3; O2SAT 100
[2024-12-30 08:53] LABS: EDINFLUASCREEN Negative (Negative); EDINFLUBSCREEN Negative (Negative)
[2024-12-30 08:53] LABS: EDCOVIDSCREEN Negative (Negative)
== END 2024-12-30 08:41 | disposition home or self-care (01) ==
PROVIDERS: Emergency Provider Nurse Practitioner Family
DX: J01.40 Acute pansinusitis, unspecified (principal); Z20.822 Contact with and (suspected) exposure to COVID-19
CPT/HCPCS: 87426; 87804; 99213; G0463

== ENCOUNTER 2025-01-08 13:01 | Emergency (ER) | payer OTHER, SELFPAY ==
--- NOTE | ~2025-01-08 | XR_ITS ---
XR chest 2V Ordering provider: BRI Day History: 54 years Female with . cough, sob . Comparison: August 22, 2024 FINDINGS: MEDIASTINUM: The cardiac silhouette is not enlarged. LUNGS: No infiltrates, effusions or pneumothorax. OTHER: No free air under the diaphragm. IMPRESSION: No acute cardiopulmonary pathology. Reviewed, dictated and finalized at location A.
--- OUTSIDE RECORDS SUMMARY | 2025-01-08 13:04 | XMS_ITS | Continuity of Care Document ---
Author Organization [facility] Address [address] [place] [address] [address] [place] [address] Phone Care Team Providers Care Medical Education Specialist Name Role Phone Mono Chandni EDWARDS Unavailable Unavailable Procedures Procedure Date PT RE-EVALUATION THERAPEUTIC EXERCISES MANUAL THERAPY HOT/COLD PACK ELECTRIC STIMULATION UNATT THERAPEUTIC EXERCISES MANUAL THERAPY HOT/COLD PACK ELECTRIC STIMULATION UNA THERAPEUTIC EXERCISES MANUAL THERAPY HOT/COLD PACK ELECTRIC STIMULATION UNA THERAPEUTIC EXERCISES MANUAL THERAPY HOT/COLD PACK ELECTRIC STIMULATION UNA THERAPEUTIC EXERCISES MANUAL THERAPY HOT/COLD PACK ELECTRIC STIMULATION UNA THERAPEUTIC EXERCISES MANUAL THERAPY HOT/COLD PACK ELECTRIC STIMULATION UNATT THERAPEUTIC EXERCISES MANUAL THERAPY HOT/COLD PACK ELECTRIC STIMULATION UNATT THERAPEUTIC EXERCISES MANUAL THERAPY HOT/COLD PACK ELECTRIC STIMULATION UNA THERAPEUTIC EXERCISES MANUAL THERAPY HOT/COLD PACK ELECTRIC STIMULATION UNATT THERAPEUTIC EXERCISES MANUAL THERAPY HOT/COLD PACK ELECTRIC STIMULATION UNATT THERAPEUTIC EXERCISES MANUAL THERAPY HOT/COLD PACK ELECTRIC STIMULATION UNATT THERAPEUTIC EXERCISES MANUAL THERAPY HOT/COLD PACK ELECTRIC STIMULATION UNATT THERAPEUTIC EXERCISES MANUAL THERAPY HOT/COLD PACK ELECTRIC STIMULATION UNATT THERAPEUTIC EXERCISES MANUAL THERAPY HOT/COLD PACK ELECTRIC STIMULATION UNATT THERAPEUTIC EXERCISES MANUAL THERAPY HOT/COLD PACK ELECTRIC STIMULATION UNA PT EVALUATION THERAPEUTIC EXERCISES MANUAL THERAPY HOT/COLD PACK ELECTRIC STIMULATION UNA Advance Directives Directive Yes / No Effective Date File Name No Information Encounters Encounter Description Practice Location Reason(s) For Visit Diagnoses Date Provider Providers Copied on Encounter [facility] [facility] [address], [place], [place], [id number], tel:[phone] [place] No Information 0 1-201 4 Villareal Chandni. [address] [facility], [address], [place], [place], [facility], . tel: [phone] [facility] [address], [place], [place], [address], tel:[phone] [place] No Information 0 2-201 4 Villareal Chandni. [address] [facility], [address], [place], [place], [facility], [place]. tel: [phone] Referring Provider: Delon Barry, [facility] [facility] [address], [place], [address]. tel:[phone] [facility] [address] [place], [place] [address], [place], [place], [id number], tel:[phone] [place] No Information Mar-3 0-201 4 Villareal Chandni. [address] [facility], [address], [place], [address], [place]. tel:[phone] Referring Provider: Delon Barry, [address] [place] [address] [address], [place], [address]. tel:[phone] [address], [place], [place], [id number], [place] tel:[phone] [place] No Information Mar- 5-201 4 Villareal Chandni. [address] [place] [address], [address], [place], [address], [place]. tel:[phone] Referring Provider: Delon Barry, [address] [place] [address] [address], [place], [address]. tel:[phone] [address], [place], [id number], [place] tel:[phone] [place] No Information Mar- 3-201 4 Villareal Chandni. [address] [place] [address], [address], [place], [address], [place]. tel:[phone] Referring Provider: Delon Barry, [address] [place] [address] [address], [place], [address]. tel:[phone] [address], [place], [place], [id number], [place] tel:[phone] [place] No Information 0-201 4 Villareal Chandni. [address] [place] [address], [address], [place], [address], [place]. tel:[phone] Referring Provider: Delon Barry, [address] [place] [address] [address], [place], [address]. tel:[phone] [address], [place], [id number], [place] tel:[phone] [place] No Information Mar- 8-201 4 Villareal Chandni. [address] [place] [address], [address], [place], [address], [place]. tel:[phone] Referring Provider: Delon Barry, [address] [place] [address] [address], [place], [address]. tel:[phone] [address], [place], [place], [id number], tel:[phone] [place] No Information Mar- 6-201 4 Villareal Chandni. [address] [place] [address], [address], [place], [place], [facility], [place]. tel:[phone] Referring Provider: Delon Barry, [address] [place] [address] [address], [place], [address]. tel:[phone] [address], [place], [id number], [place] tel:[phone] [place] No Information 2-201 4 Villareal Chandni. [address] [place] [address], [address], [place], [facility], [place]. tel:[phone] Referring Provider: Delon Barry, [address] [place] [address] [address], [place], [address]. tel:[phone] [address], [place], [id number], [place] tel:[phone] [place] No Information 9-201 4 Villareal Chandni. [address] [place] [address], [address], [place], [facility], [place]. tel:[phone] Referring Provider: Delon Barry, [address] [place] [address] [address], [place], [address]. tel:[phone] [address], [place], [address], [place] tel:[phone] [place] No Information 0 6-201 4 Villareal Chandni. [address] [place] [address], [address], [place], [facility], . tel:[phone] Referring Provider: Delon Barry, [address] [place] [address] [address], [place], [address]. tel:[phone] [address], [place], [place], [id number], tel:[phone] [place] No Information Karson-0 4-201 4 Villareal Chandni. [address] [place] [address], [address], [place], [facility], . tel: [phone] Referring Provider: Delon Barry, [address] [place] [address] [address], [place], [address]. tel:[phone], [place], [place], [id number], tel:[phone] [place] No Information Mar-0 3-201 4 Villareal Chandni. [address] [place] [address], [address], [place], [facility], . tel:[phone] Referring Provider: Delon Barry, [address] [place] [address] [address], [place], [address]. tel:[phone], [place], [id number], [place] tel:[phone] [place] No Information February-3 0-201 4 Villareal Chandni. [address] [place] [address], [address], [place], [facility], . tel:[phone] Referring Provider: Delon Barry, [address] [place] [address] [address], [place], [address]. tel:[phone] [address], [place], [id number], [place] tel:[phone] [place] No Information February-2 9-201 4 Villareal Chandni. [address] [place] [address], [address], [place], [facility], . tel:[phone] Referring Provider: eDlon Barry, [address] [place] [address] [address], [place], [address]. tel:[phone], [place], [id number], tel:[phone] [place] No Information 4 Villarealdevaughn Rhodesi. [address] [facility], [address], [place], [facility], . tel:[phone] Referring Provider: Delon Barry, [address] [place] [address] [address], [place], [address]. tel:[phone], [place], [place], [id number], tel:[phone] [place] Cervicalgia 4 Villareal Chandni. [address] [place] [address], [address], [place], [place], [facility], . [phone] Referring Provider: Delon Barry, [address] [place] [address] [address], [place], [address]. tel:[phone] Family History Family Member Type Diagnosis Age At Onset No Information Payers Payer name Insurance type Covered constitution party ID Authoriza tion(s) No Information Social History Type Description Quantity Date Captured Comments Sex Female Smoking Status No Information Chief Complaint And Reason For Visit No Information Reason For Referral Reason For Referral No Information History Of Present Illness Encounter Date Complaint History Of Prese nt Illness No Information Functional Status Date Functional Assessmen t No Information Instructions Date Instruction Additional Infor mation No Information Assessments Type Assessment Date No Information Patient Care Teams Name Effective Dates (start - stop) Status Members No Information
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
--- OUTSIDE RECORDS SUMMARY | 2025-01-08 13:04 | XMS_ITS | Clinical Summary ---
Author Organization [facility] Address [address] [place] [address] Phone Care Team Providers Care Sanitation Worker Hosing Machinery Name Role Phone Unavailable Primary Care Provider [...]
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
--- OUTSIDE RECORDS SUMMARY | 2025-01-08 13:04 | XMS_ITS | Clinical Summary ---
Author Organization [facility] Address [address] [place] [address] Care Team Providers Care Physical Therapy Professor Name Role Phone Delon Dow DO Primary Care Provider [phone] Allergies Active Allergy Reactions Criticality Noted Date [...] Encounters Date Type Department Care Team Description 01/03/2025 External Device Data STL ABSTRACTION Provider, Abstract 01/03/2025 External Device Data [facility] ABSTRACTION Provider, Abstract 12/31/2024 External Device Data [place] ABSTRACTION Provider, Abstract 12/30/2024 External Device Data [place] ABSTRACTION Provider, Abstract 12/27/2024 External Device Data ST[place] ABSTRACTION Provider, Abstract 12/18/2024 Refill [facility], [place] [place] [place] [address] Karon García APRN KATHLEEN (generalized anxiety disorder); Gastroesophageal reflux disease, unspecified whether esophagitis present 12/13/2024 External Device Data STL ABSTRACTION Provider, Abstract 12/02/2024 Results Follow-Up [facility], [place] [place] [place] [address] Delon Dow DO MAMMO 3D NITA SCREEN IMPL BILAT W OR WO CAD, LIPID PANEL, HEMOGLOBIN A1C, Additional followed-up results: 4 12/01/2024 5:04 PM RHIC SYSTEMS SAFETY ENGINEER - 12/01/2024 11:59 PM RHIC SYSTEMS SAFETY ENGINEER Hospital Encounter [facility] [address] [place] [address] Delon Dow, Discharge Disposition: Home or Self Care 11/16/2024 External Device Data STL ABSTRACTION Provider, Abstract 11/16/2024 External Device Data ST[place] ABSTRACTION Provider, Abstract 11/10/2024 3:00 PM RHIC SYSTEMS SAFETY ENGINEER Office Visit [facility], [place] [place] [place] [address] Delon Dow DO Encounter for general adult medical examination with abnormal findings (Primary Dx); Subclinical hypothyroidism; Mass of thyroid gland; Irritable bowel syndrome with constipation; Mixed hyperlipidemia; Gastroesophageal reflux disease without esophagitis; KATHLEEN (generalized anxiety disorder); Encounter for screening mammogram for breast cancer; Colon cancer screening; Declined influenza vaccine 11/10/2024 Orders Only [facility] Primary Care - [facility], [place] [place] [facility] [place] [phone] Khadar Reid MD 11/01/2024 External Device Data [...] Mother Ana Gardner PAF Hypertension Mother Ana Irizarryison Thyroid Disease Mother Ana Jj Heart Disease [...] on file Legal Sex Female 5:54 AM RHIC SYSTEMS SAFETY ENGINEER Gender Identity Not on file Sexual Orientation Not on file Last Filed Vital Signs Vital Sign Reading Time Taken Comments Blood Pressure 112/80 11/10/2024 2:49 PM RHIC SYSTEMS SAFETY ENGINEER Pulse 70 11/10/2024 2:49 PM RHIC SYSTEMS SAFETY ENGINEER Temperature 36.7 C (98 F) 11/10/2024 2:49 PM RHIC SYSTEMS SAFETY ENGINEER Respiratory Rate 20 10/24/2020 9:53 AM RHIC SYSTEMS SAFETY ENGINEER Oxygen Saturation 96% 11/10/2024 2:49 PM RHIC SYSTEMS SAFETY ENGINEER Inhaled Oxygen Concentration - - Weight 70.8 kg (156 lb) 11/10/2024 2:49 PM RHIC SYSTEMS SAFETY ENGINEER Height 162.6 cm (5' 4 ) 11/10/2024 2:49 PM RHIC SYSTEMS SAFETY ENGINEER Body Mass Index 26.78 11/10/2024 2:49 PM RHIC SYSTEMS SAFETY ENGINEER Plan of Treatment Upcoming Encounters Date Type Department Care Team (Late st Contact Info) Description 01/12/2025 3:20 PM CDT Appointment [facility] CT Scan S [place] [address] [place] [phone] Delon Dow, DO [address] [address] 02/02/2025 1:15 PM CDT Appointment [facility] Ultrasound [address] [place] [address] [place] [address] Delon Dow, [address] [address] 11/09/2025 3:20 PM RHIC SYSTEMS SAFETY ENGINEER Office Visit [facility] Primary Care - [facility], [place] [place] [facility] [place] [address] Delon Dow, [address] [address] Health Maintenance Due Date Last Done Comments DTAP/TDAP/TD VACCINES (1 - Tdap) 1988 HEPATITIS B VACCINES (1 of 3 - 19+ 3-dose series) 1988 CERVICAL CANCER SCREENING 1999 FIT-DNA Q 3 years 2014 FIT/FOBT Q 1 year 2014 Flex Sig/CT Colonography Q 5 years 2014 ZOSTER VACCINE (1 of 2) 2019 COVID-19 Vaccine (3 - 2023-2 5 season) 2024 01/12/2021, 12/15/2020 BREAST CANCER SCREENING 12/01/2025 12/01/19 25, 11/10/2023, 01/06/2020 Pre-Diabetes and Diabetes Screening 12/01/2027 12/01/2024, 09/29/2023, 01/25/2021, Additional history exists COLORECTAL SCREENING 09/17/2032 09/17/2022 Colorectal Cancer Screening 09/17/2032 INFLUENZA VACCINE Completed 11/10/2024, , 11/10/2023, Additional history exists Preventative Visit- Commercial Completed 0 11/10/2024, 09/29/2023, 11/19/2020, Additional history exists Medical Devices Implanted Type Area Supervisor Mold Yard Device Identifier Shelf Expiration Date Model / Serial / Lot Endo Clip Ii 10mm [id number] - [id number] Implanted:Qty : 1 on 10/24/2020 by Ramakrishna Anna MD at [facility] Clip N/A: Abdomen [employer] - COVIDIEN [id number] 11/25/2024 [id number] / / [id number] Procedures Procedure Name Priority Date/Time Associated Diagnosis Comments MAMMO 3D NITA SCREEN IMPL BILAT W OR WO CAD Routine 12/01/2024 5:24 PM RHIC SYSTEMS SAFETY ENGINEER Encounter for screening mammogram for breast cancer VITAMIN B12 LEVEL Routine 12/01/2024 10: 11 AM RHIC SYSTEMS SAFETY ENGINEER KATHLEEN (generalized anxiety disorder) TSH REFLEXIVE Routine 12/01/2024 10:11 AM RHIC SYSTEMS SAFETY ENGINEER Encounter for general adult medical examination with abnormal findings COMPREHENSIVE METABOLIC PANEL Routine 12/01/2024 10:11 AM RHIC SYSTEMS SAFETY ENGINEER Encounter for general adult medical examination with abnormal findings CBC WITH DIFFERENTIAL Routine 12/01/2024 10:11 AM RHIC SYSTEMS SAFETY ENGINEER Encounter for general adult medical examination with abnormal findings HEMOGLOBIN A1C Routine 12/01/2024 10:11 AM RHIC SYSTEMS SAFETY ENGINEER Encounter for general adult medical examination with abnormal findings LIPID PANEL Routine 12/01/2024 10:11 AM RHIC SYSTEMS SAFETY ENGINEER Encounter for general adult medical examination with abnormal findings ENDOSCOPY, COLON, SCREENING Routine 09/17/2022 3:07 PM RHIC SYSTEMS SAFETY ENGINEER from Last 3 Months or Most Recently Relevant to Health Maintenance Results * MAMMO 3D NITA SCREEN IMPL BILAT W OR WO CAD (12/01/2024 5:24 PM RHIC SYSTEMS SAFETY ENGINEER) Anatomical Region Laterality Modality Breast Bilateral Mammography 12/01/2024 5:26 PM RHIC SYSTEMS SAFETY ENGINEER Impressions 12/02/2024 7:26 AM RHIC SYSTEMS SAFETY ENGINEER IMPRESSION: No suspicious findings to suggest malignancy in either breast. Annual mammography is recommended. OVERALL FINAL ASSESSMENT: BI-RADS CATEGORY 2 - Benign findings DICTATION LOCATION: Elizabeth Olson 12/02/2024 7:26 AM RHIC SYSTEMS SAFETY ENGINEER BILATERAL SCREENING DIGITAL IMPLANT MAMMOGRAM WITH 3D [...] Result * TSH REFLEXIVE (12/01/2024 10:11 AM RHIC SYSTEMS SAFETY ENGINEER) TSH 2.91 mIU/L [facility] Comment: Reference Range > or = 20 Years 0.40-4.50 Ranges First trimester 0.26-2.66 Second trimester 0.55-2.73 Third trimester 0.43-2.91 FASTING:YES FASTING: YES Test Performed at: [facility] [address] [place] [address] Parker Shields MD Blood 12/01/2024 10:1 1 AM RHIC SYSTEMS SAFETY ENGINEER 12/01/2024 10:12 AM RHIC SYSTEMS SAFETY ENGINEER Delon Dow DO CHEMISTRY ORDERABLES Final Resul t [facility] [phone] [facility] [address] [facility] [place] [address] * (ABNORMAL) CBC WITH DIFFERENTIAL (12/01/2024 10:11 AM RHIC SYSTEMS SAFETY ENGINEER) Pathologist [facility] WBC 4.2 3.8 - 10.8 Thousand/u L [...] [facility] Comment: Test Performed at: [facility] [address] [place] [address] Parker Shields MD Blood 12/01/2024 10:1 1 AM RHIC SYSTEMS SAFETY ENGINEER 12/01/2024 10:12 AM RHIC SYSTEMS SAFETY ENGINEER Delon Dow DO HEMATOLOGY ORDERABLES Final Resu lt [facility] [phone] [facility] [address] [address] * HEMOGLOBIN A1C (12/01/2024 10:11 AM RHIC SYSTEMS SAFETY ENGINEER) HEMOGLOBIN A1C 5.4 <5.7 % of total Hgb [facility] Comment: For the purpose of screening for the presence of diabetes: <5.7% Consistent with the absence of diabetes 5.7-6.4% Consistent with increased risk for diabetes (prediabetes) > or =6.5% Consistent with diabetes This assay result is consistent with a decreased risk of diabetes. Currently, no consensus exists regarding use of hemoglobin A1c for diagnosis of diabetes in children. According to [place] Diabetes Association (ADA) guidelines, hemoglobin A1c <7.0% represents optimal control in non- diabetic patients. Different metrics may apply to specific patient populations. Standards of Medical Care in Diabetes(ADA). ESTIMATED AVERAGE GLUCOSE (MG/DL) 108 mg/dL [facility] ESTIMATED AVERAGE GLUCOSE (MMOL/L) 6.0 mmol/L [facility] Comment: FASTING:YES FASTING: YES Test Performed at: [facility] [place] [address] [address] [place] [address] Abigail-Jessica [facility] Blood 12/01/2024 10:1 1 AM RHIC SYSTEMS SAFETY ENGINEER 12/01/2024 10:12 AM RHIC SYSTEMS SAFETY ENGINEER Delon Dow DO CHEMISTRY ORDERABLES Final Resul t [facility] [phone] [place] [address] [address] [place] [address] * VITAMIN B12 LEVEL (12/01/2024 10:11 AM RHIC SYSTEMS SAFETY ENGINEER) VITAMIN B12 234 200 - 1100 pg/mL [facility] Comment: Please Note: Although the reference range for vitamin B12 is 200-1100 pg/mL, it has been reported that between 5 and 10% of patients with values between 200 and 400 pg/mL may experience neuropsychiatric and hematologic abnormalities due to occult B12 deficiency; less than 1% of patients with values above 400 pg/mL will have symptoms. Test Performed at: [facility] [address] [facility] [place] [address] Parker Shields MD Blood 12/01/2024 10:1 1 AM RHIC SYSTEMS SAFETY ENGINEER 12/01/2024 10:12 AM RHIC SYSTEMS SAFETY ENGINEER us Delon Dow DO CHEMISTRY ORDERABLES Final Resul t [facility] [phone] [facility] [place] [address] * (ABNORMAL) LIPID PANEL (12/01/2024 10:11 AM RHIC SYSTEMS SAFETY ENGINEER) CHOLESTEROL 217(H) <200 mg/dL [facility] HDL 56 > OR = 50 mg/dL [facility] TRIGLYCERIDE 89 <150 mg/dL [facility] LDL CALCULATED 142(H) mg/dL (calc) [facility] Comment: Reference range: <100 Desirable range <100 mg/dL for primary prevention; <70 mg/dL for patients with CHD or diabetic patients with > or = 2 CHD risk factors. LDL-C is now calculated using the Roberto-Sheridan calculation, which is a validated novel method providing better accuracy than the Friedewald equation in the estimation of LDL-C. Roberto SS et al. NIKKIE. 2013;310(19): 9428-8467 (http://education.[facility]/faq/BVP786) CHOL/HDL RATIO 3.9 <5.0 (calc) [facility] NON-HDL CHOLESTEROL 161(H) <130 mg/dL (calc) [facility] Comment: For patients with diabetes plus 1 major ASCVD risk factor, treating to a non-HDL-C goal of <100 mg/dL (LDL-C of <70 mg/dL) is considered a therapeutic option. Test Performed at: [facility] [address] [address] Parker Shields MD Blood 12/01/2024 10:1 1 AM RHIC SYSTEMS SAFETY ENGINEER 12/01/2024 10:12 AM RHIC SYSTEMS SAFETY ENGINEER us Delon Dow DO CHEMISTRY ORDERABLES Final Resul t [facility] [phone] [facility] [address] [address] [address] * COMPREHENSIVE METABOLIC PANEL (12/01/2024 10:11 AM RHIC SYSTEMS SAFETY ENGINEER) GLUCOSE 91 65 - 99 mg/dL [facility] [...] [facility] ALT 14 6 - 29 U/L [facility] Comment: FASTING:YES FASTING: YES Test Performed at: [facility] [address] [address] [address] Parker Shields MD Blood 12/01/2024 10:1 1 AM RHIC SYSTEMS SAFETY ENGINEER 12/01/2024 10:12 AM RHIC SYSTEMS SAFETY ENGINEER us Delon Dow DO CHEMISTRY ORDERABLES Final Resul t Performing Organization Address [facility] Co de Phone Number [facility] [phone] [facility] [address] [address] * ENDOSCOPY, COLON, SCREENING (09/17/2022 3:07 PM RHIC SYSTEMS SAFETY ENGINEER) us Khadar Reid MD GI PROCEDURE ORDERABLES Final Re sult Performing Organization Address [facility] Co de Phone Number [facility] [id number] [address] [place] [address], [place] [address] from Last 3 Months or Most Recently Relevant to Health Maintenance Insurance [facility] [employer] [id number] RX [employer] RX Member Subscriber Plan / Payer (Ef fective for All Dates) Name:Nadeem Brooks Relation to Subscriber:Self Name:Nadeem Brooks Payer ID:Not on file Group ID:[id number] Type:RX Commercial Address: [address] Advance Directives For more information, please contact: [phone] * Full Code (Latest Code Status on File) Date Activated Date Inactivated Comments 10/24/2020 7:53 AM 10/24/2020 2:44 PM * Full Code Date Activated Date Inactivated Comments 10/24/2020 5:45 AM 10/24/2020 7:52 AM Care Teams Physical Therapy Professor Relationship Specialty Start Date End Date Delon Dow DO [address] [facility] [[email or web address]] [address] [place] [phone] PCP - General Internal Medicine 11/18/19
--- OUTSIDE RECORDS SUMMARY | 2025-01-08 13:04 | XMS_ITS | Continuity of Care Document ---
Author Organization [facility] Address [address] [place] [address] Phone Care Team Providers Care Manager Outreach Name Role Phone Mary Harrison Unavailable Unavailable Advance Directives Directive Yes / No Effective Date File Name No Information Encounters Encounter Description Practice Location Reason(s) For Visit Diagnoses Date Provider Providers Copied on Encounter [facility], [address], [place], [place], [id number], [place] tel:[phone] [facility] No Information [address] , [address], [place], [address], [place]. tel:[phone] Referring Provider: [place], [address]. tel:[phone] Family History Family Member Type Diagnosis Age At Onset No Information Payers Payer name Insurance type Covered green party ID Authorflora urszula(s) [facility] CI [id number] Social History Type Description Quantity Date Captured [...]
--- OUTSIDE RECORDS SUMMARY | 2025-01-08 13:10 | XMS_ITS | Continuity of Care Document ---
Author Organization [facility] Address [address] [place] [address] Phone Care Team Providers Care Hand Drawer In Helper Name Role Phone Mary Harrison Unavailable Unavailable Advance Directives Directive Yes / No Effective Date File Name No Information Encounters Encounter Description Practice Location Reason(s) For Visit Diagnoses Date Provider Providers Copied on Encounter [facility], [address], [place], [place], [id number], [place] tel:[phone] [facility] No Information [address]. [address] , [address], [place], [address], [place]. tel:[phone] Referring Provider: [place], [address]. tel:[phone] Family History Family Member Type Diagnosis Age At Onset No Information Payers Payer name Insurance type Covered green party ID Authorflora urszula(s) [facility] CI [id number] Social History Type Description Quantity Date Captured [...]
--- OUTSIDE RECORDS SUMMARY | 2025-01-08 13:10 | XMS_ITS | Continuity of Care Document ---
Author Organization [facility] [place] Address [address] [place] [address] [address] [place] [address] Phone Care Team Providers Care Railroad Carman Name Role Phone Mono Chandni EDWARDS Unavailable [...] Diagnoses Date Provider Providers Copied on Encounter [facility] [facility] [address], [place], [place], [id number], tel:[phone] Morgan No Information 0 1-201 4 Villareal Chandni. [address] [facility], [address], [place], [place], [facility], . tel: [phone] [facility] [address] [facility], [place], [place], [id number], tel:[phone] Morgan No Information 0 2-201 4 Villareal Chandni. [address] [facility], [address], [place], [place], [facility], [place]. tel: [phone] Referring Provider: Delon Barry, [facility] [address], [place], [address]. tel:[phone] [facility] [address] [place], [place] [address], [place], [place], [id number], tel:[phone] Morgan No Information Mar-3 0-201 4 Villareal Chandni. [address] [facility], [address], [place], [address], [place]. tel:[phone] Referring Provider: Delon Barry, [address] [place] [address] [address], [place], [address]. tel:[phone] [address], [place], [place], [address], [place] tel:[phone] Morgan No Information Mar- 5-201 4 Villareal Chandni. [address] [place] [address], [address], [place], [address], [place]. tel:[phone] Referring Provider: Delon Barry, [address] [place] [address] [address], [place], [address]. tel:[phone] [address], [place], [place], [id number], [place] tel:[phone] Morgan No Information Mar- 3-201 4 Villareal Chandni. [address] [place] [address], [address], [place], [address], [place]. tel:[phone] Referring Provider: Delon Barry, [address] [place] [address] [address], [place], [address]. tel:[phone] [address], [place], [place], [address], [place] tel:[phone] Morgan No Information 0-201 4 Villareal Chandni. [address] [place] [address], [address], [place], [address], [place]. tel:[phone] Referring Provider: Delon Barry, [address] [place] [address] [address], [place], [address]. tel:[phone] [address], [place], [place], [id number], [place] tel:[phone] Morgan No Information Mar- 8-201 4 Villareal Chandni. [address] [place] [address], [address], [place], [address], [place]. tel:[phone] Referring Provider: Delon Barry, [address] [place] [address] [address], [place], [address]. tel:[phone] [address], [place], [place], [id number], tel:[phone] Morgan No Information Mar- 6-201 4 Villareal Chandni. [address] [place] [address], [address], [place], [place], [facility], [place]. tel:[phone] Referring Provider: Delon Barry, [address] [place] [address] [address], [place], [address]. tel:[phone] [address], [place], [place], [id number], [place] tel:[phone] Morgan No Information 2-201 4 Villareal Chandni. [address] [place] [address], [address], [place], [place], [facility], [place]. tel:[phone] Referring Provider: Delon Barry, [address] [place] [address] [address], [place], [address]. tel:[phone] [address], [place], [place], [address], [place] tel:[phone] Morgan No Information 9-201 4 Villareal Chandni. [address] [place] [address], [address], [place], [place], [facility], [place]. tel:[phone] Referring Provider: Delon Barry, [address] [place] [address] [address], [place], [address]. tel:[phone] [address], [place], [place], [address], [place] tel:[phone] Morgan No Information 0 6-201 4 Villareal Chandni. [address] [place] [address], [address], [place], [facility], . tel:[phone] Referring Provider: Delon Barry, [address] [place] [address] [address], [place], [address]. tel:[phone] [address], [place], [place], [id number], tel:[phone] Morgan No Information Karson-0 4-201 4 Villareal Chandni. [address] [place] [address], [address], [place], [facility], . tel: [phone] Referring Provider: Delon Barry, [address] [place] [address] [address], [place], [address]. tel:[phone], [place], [place], [id number], tel:[phone] Morgan No Information Mar-0 3-201 4 Villareal Chandni. [address] [place] [address], [address], [place], [facility], . tel:[phone] Referring Provider: Delon Barry, [address] [place] [address] [address], [place], [address]. tel:[phone], [place], [place], [id number], [place] tel:[phone] Morgan No Information February-3 0-201 4 Villareal Chandni. [address] [place] [address], [address], [place], [facility], . tel:[phone] Referring Provider: Delon Barry, [address] [place] [address] [address], [place], [address]. tel:[phone] [address], [place], [place], [id number], [place] tel:[phone] Morgan No Information February-2 9-201 4 Villareal Chandni. [address] [place] [address], [address], [place], [facility], . tel:[phone] Referring Provider: Delon Barry, [address] [place] [address] [address], [place], [address]. tel:[phone], [place], [place], [address], tel:[phone] Morgan No Information 4 Villarealdevaughn Rhodesi. [address] [facility], [address], [place], [place], [facility], . tel:[phone] Referring Provider: Delon Barry, [address] [place] [address] [address], [place], [address]. tel:[phone], [place], [place], [id number], tel:[phone] Morgan Cervicalgia 4 Villareal Chandni. [address] [place] [address], [address], [place], [facility], . [phone] Referring Provider: Delon Barry, [address] [place] [address] [address], [place], [address]. tel:[phone] Family History Family Member Type Diagnosis Age At Onset No Information Payers Payer name Insurance type Covered alliance party ID Authoriza tion(s) No Information Social [...]
[2025-01-08 13:13] VITALS: BP 124/60; PULSE 95; RESP 18; TEMP 36.4; O2SAT 100
--- NOTE | 2025-01-08 13:27 | ED.URI ---
HPI - URI/Sore Throat General Chief Complaint: Upper Respiratory Infection Stated Complaint: chest congestion/rapid heart rate Time Seen by Provider: 01/08/25 13:19 Source: patient, RN notes reviewed and old records reviewed Mode of arrival: ambulatory Limitations: no limitations History of Present Illness HPI Narrative: Patient presents today complaining of cough, nasal congestion, shortness of breath, elevated heart rate. The shortness of breath and elevated heart rate have been present for the past 2 days. Patient has had some cough and congestion symptoms persistently. She was seen initially at [facility] 9 days ago and was diagnosed with sinusitis and given a prescription for doxy and prednisone which she has finished. Patient cannot say with certainty that the previous illness fully resolved prior to her cough symptoms starting. She tested negative for influenza and COVID-19 at her previous visit. Of than this, she has been taking some ibuprofen or some mild relief. Denies history of asthma or COPD. She is nonsmoker. Related Data Home Medications ?Medication ?Instructions ?Recorded ?Confirmed ?Last Taken ?Type estradiol-norethindrone acet 0.5 1 tablet PO DAILY 09/12/22 08/22/24 09/16/22 History mg-0.1 mg tablet levothyroxine 25 mcg tablet 25 mcg PO DAILY 08/22/24 08/22/24 Unknown History fluticasone propionate 50 1 spray intranasal DAILY PRN 01/08/25 01/08/25 Unknown History mcg/actuation nasal allergy symptoms spray,suspension Allergies Allergy/AdvReac Type Severity Reaction Status Date / Time Penicillins Allergy Mild Rash Verified 01/08/25 13:13 Quinolones Allergy Mild HIVES Verified 01/08/25 13:13 vancomycin AdvReac Mild Itching Verified 01/08/25 13:13 Review of Systems Review of Systems: CONSTITUTIONAL: Denies body aches, fever, chills, or sweats. EYES: Denies visual changes, redness, or discharge. ENT: Denies rhinorrhea, sore throat, or otalgia.+ congestion CARDIOVASCULAR: Denies chest pain, palpitations, or edema.+ elevated heart rate RESPIRATORY: + cough, shortness of breath GASTROINTESTINAL: Denies abdominal pain, nausea, vomiting, or diarrhea. GENITOURINARY: Denies dysuria or hematuria. SKIN: Denies rash, itching, or wounds. MUSCULOSKELETAL: Denies back pain, joint pain, or myalgia. NEUROLOGIC: Denies headache, numbness, tingling, or weakness. PSYCH: Denies depression or anxiety. [facility] Past Medical History Medical History (Updated 01/08/25 @ 13:50 by Yandy Damon, BRI, ) Hypothyroidism GERD (gastroesophageal reflux disease) Davila's palsy Overweight (BMI 25.0-29.9) Surgical History Surgical History (Updated 01/08/25 @ 13:32 by Yandy Damon, BRI, ) History of right oophorectomy History of endometrial ablation History of cholecystectomy History of appendectomy Family History Family History Mother Hypertension Family history of hypothyroidism Father Family history of elevated blood lipids Family history of cardiovascular disease Social History Social History Smoking status: Never smoker Alcohol intake: current Drinks per week: 2 Substance use type: does not use Living arrangements: with family Comments At time of signature, I have reviewed and agree with nursing past medical, surgical, social and family history unless otherwise noted. Please see nursing chart for further information. There is no relevant family history pertinent to the presenting complaint Exam Narrative: GENERAL: Well-appearing, well-nourished, and in no acute distress. HEAD: Normocephalic, atraumatic. EYES: EOMI. No redness or drainage. Conjunctivae normal. ENT: Mucous membranes pink and moist. Nares congested. No rhinorrhea. TMs normal bilaterally. Throat normal. Uvula midline. NECK: Normal AROM. Supple. No lymphadenopathy. CHEST: No respiratory distress. Slight crackle in the right lower lobe, otherwise clear. HEART: Regular rate and rhythm. No murmur appreciated. Normal peripheral pulses. EXTREMITIES: Normal range of motion. No edema. SKIN: Warm, dry, no rash. Capillary refill normal. Normal skin turgor. NEURO: No focal deficits. Alert and oriented x3. Gait steady. PSYCH: Normal affect. No signs of depression or anxiety. Course Course Level of Care: Express Care Visit Vital Signs Vital signs: Vital Signs Temperature 97.6 F 01/08/25 13:13 Pulse Rate 95 01/08/25 13:13 Respiratory Rate 18 01/08/25 13:13 Blood Pressure 124/60 01/08/25 13:13 Pulse Oximetry 100 01/08/25 13:13 Oxygen Delivery Room Air 01/08/25 13:13 Temperature 97.6 F 01/08/25 13:13 Pulse Rate 95 01/08/25 13:13 Respiratory Rate 18 01/08/25 13:13 Blood Pressure 124/60 01/08/25 13:13 Pulse Oximetry 100 01/08/25 13:13 Oxygen Delivery Room Air 01/08/25 13:13 Review MDM - URI/Sore Throat MDM Narrative Medical decision making narrative: Chest x-ray negative. Patient has already been on a course of antibiotics and prednisone and symptoms are likely viral. Will start on an albuterol inhaler and some Tessalon Perles to help with symptoms. Follow-up instructions and ED precautions given. Differential Diagnosis Differential diagnosis: Likely upper respiratory infection, viral infection, bronchitis and other (Pneumonia) Imaging Data Radiologist's impression: ITS Impressions Chest X-Ray 01/08/25 13:39 IMPRESSION: No acute cardiopulmonary pathology. Critical Care Time Critical Care Time Critical Care Time: No Discharge Plan Discharge Clinical Impression: Upper respiratory infection Qualifiers: URI type: unspecified URI Qualified Code(s): J06.9 - Acute upper respiratory infection, unspecified Patient Disposition: Home, Self-Care Condition: Stable Instructions: Upper Respiratory Infection (DC) Additional Instructions: Your chest x-ray is negative for pneumonia today. Your symptoms are likely due to a viral illness, which is not treated with antibiotics. Virus symptoms can last for up to 7-14 days, but cough can last for longer. Take Tylenol or ibuprofen for pain or fever. Rest and stay hydrated. Use albuterol inhaler hand Tessalon Perles as prescribed. Follow up with your PCP in 3-4 days if symptoms are not improving. Go to the ER immediately if you develop worsening shortness of breath, difficulty swallowing, develops a new fever greater than 100.3, or any other concerning symptoms. Your blood pressure was elevated above 120/80 today at Urgent Care. This puts you above the threshold for follow up. Please schedule a followup visit with your personal physician as soon as possible, for further evaluation and treatment. Even blood pressure exceeding 120/80 may indicate pre-hypertension. Patient Language: Maltese Prescriptions: New albuterol sulfate 90 mcg/actuation HFA aerosol inhaler 2 inh inhalation Q4-6H PRN (Reason: shortness of breath or wheezing) Qty: 8.5 0RF (DME) BreatheRite MDI Spacer Spacer See Rx Instructions .ROUTE .MEDSUPPLY Qty: 1 0RF Rx Instructions: As directed benzonatate 200 mg capsule 200 mg PO TID PRN (Reason: cough) Qty: 30 0RF No Action estradiol-norethindrone acet 0.5-0.1 mg tablet 1 tablet PO DAILY loratadine [Claritin] 10 mg tablet 10 mg PO DAILY Qty: 30 0RF fluticasone propionate 50 mcg/actuation spray,suspension 1 spray intranasal DAILY PRN (Reason: allergy symptoms) Rx Instructions: administer into each nostril levothyroxine 25 mcg tablet 25 mcg PO DAILY duloxetine 30 mg capsule,delayed release(DR/EC) 30 mg PO DAILY Qty: 90 0RF pantoprazole 40 mg tablet,delayed release (DR/EC) 40 mg PO DAILY Qty: 90 0RF Follow-up/Referrals: Delon Dow [Other] Time of Disposition: 13:51
== END 2025-01-08 13:55 | disposition home or self-care (01) ==
PROVIDERS: Emergency Provider Nurse Practitioner
DX: J06.9 Acute upper respiratory infection, unspecified (principal); E03.9 Hypothyroidism, unspecified; K21.9 Gastro-esophageal reflux disease without esophagitis
CPT/HCPCS: 71046; 99213; G0463

== ENCOUNTER 2025-03-10 15:38 | Emergency (ER) | payer OTHER, SELFPAY ==
--- OUTSIDE RECORDS SUMMARY | 2025-03-11 11:49 | XMS_ITS | Clinical Summary ---
Author Organization [facility] Address [address] [place] [address] Phone Care Team Providers Care Inductor Tester Name Role Phone Unavailable Primary Care [...]
--- OUTSIDE RECORDS SUMMARY | 2025-03-11 11:49 | XMS_ITS | Encounter Summary ---
Author Organization [facility] Address [address] [place] [address] Care Team Providers Care Binder Caser Name Role Phone Paloma Delon Primary Care Provider [phone] Encounter Details Date Type Department Care Team (Late st Contact Info) Description 01/12/2025 Results Follow-Up [facility] - [facility], [place] [place] [address] Susan Howell, PELT SALTER [address] [place] [address] [address] CORONARY CALCIUM SCORE Social History Tobacco Use Types Packs/Day Years Used Date Smoking Tobacco: Never Smokeless Tobacco: Never Alcohol Use Standard Drinks/Week Comments Yes 1 (1 standard drink = 0.6 oz pur e alcohol) Social Comments No Sex and Gender Information Value Date Recorded Sex Assigned at Not on file Legal Sex Female 5:54 AM DETASSELER Gender Identity Not on file Sexual Orientation Not on file documented as of this encounter Plan of Treatment Upcoming Encounters Date Type Department Care Team (Late st Contact Info) Description 04/25/2025 7:30 AM CDT Appointment [facility] [address] [place] [address] [place] [address] [address] [facility] [address] [place] [address] 05/11/2025 10:00 AM CDT Office Visit [facility] Surgical [facility] [place] [address] [place] [address] [place] [address] [place] [address] 11/09/2025 3:20 PM DETASSELER Office Visit [facility] Primary [facility] - [facility], [place] [place] [place] [address] Delon Dow DO [address] [place] [address] documented as of this encounter Visit Diagnoses Not on filedocumented in this encounter Care Teams Binder Caser Relationship Specialty Start Date End Date Delon Dow DO [address] [place] [address] PCP - General Internal Medicine 11/18/19 documented as of this encounter
--- OUTSIDE RECORDS SUMMARY | 2025-03-11 11:49 | XMS_ITS | Continuity of Care Document ---
Author Organization [facility] Address [address] [place] [address] Phone Care Team Providers Care Cardiac Nurse Specialist Name Role Phone Mary Harrison Unavailable Unavailable Advance Directives Directive Yes / No Effective Date File Name No Information Encounters Encounter Description Practice Location Reason(s) For Visit Diagnoses Date Provider Providers Copied on Encounter [facility], [address], [place], [place], [id number], [place] tel:[phone] [facility] No Information [address] Hernandez. [address] , [address], [place], [address], [place]. tel:[phone] Referring Provider: [place], [address]. tel:[phone] Family History Family Member Type Diagnosis Age At Onset No Information Payers Payer name Insurance type Covered constitution party ID Authorflora urszula(s) [facility] CI [id number] Social History Type Description Quantity Date Captured [...]
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
--- OUTSIDE RECORDS SUMMARY | 2025-03-11 11:49 | XMS_ITS | Encounter Summary ---
Author Organization [facility] Address [address] [place] [address] Care Team Providers Care Quality Control Manager Name Role Phone Delon Dow DO Primary Care Provider [phone] Encounter Details Date Type Department Care Team (Late Contact Info) Description 01/09/2025 Telephone [facility] Primary Care - [facility], [place] [address] [facility] [place] [id number] Delon Dow DO [address] [address] Social History Tobacco Use Types Packs/Day Years Used Date Smoking Tobacco: Never Smokeless Tobacco: Never Alcohol Use Standard Drinks/Week Comments Yes 1 (1 standard drink = 0.6 oz pur e alcohol) Social Comments No Sex and Gender Information Value Date Recorded Sex Assigned at Not on file Legal Sex Female 5:54 AM ESTIMATOR PRINTING PLATE MAKING Gender Identity Not on file Sexual Orientation Not on file documented as of this encounter Plan of Treatment Upcoming Encounters Date Type Department Care Team (Late Contact Info) Description 04/25/2025 7:30 AM CDT Appointment [facility] [address] [place] [address] [place] [address] [place] [address] [place] [address] 05/11/2025 10:00 AM CDT Office Visit [facility] Surgical Oncology [place] [address] [place] [address] [place] [address] [place] [address] 11/09/2025 3:20 PM ESTIMATOR PRINTING PLATE MAKING Office Visit [facility] Care - [facility], [place] [place] [place] [address] Delon Dow DO [address] [facility] 310 [place] [phone] documented as of this encounter Visit Diagnoses Not on filedocumented in this encounter Care Teams Quality Control Manager Relationship Specialty Start Date End Date Delon Dow DO [address] [facility] 310 [place] [address] PCP - General Internal Medicine 11/18/19 documented as of this encounter
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
--- OUTSIDE RECORDS SUMMARY | 2025-03-11 11:50 | XMS_ITS | Continuity of Care Document ---
Author Organization [facility] Address [address] [place] [address] [address] [place] [address] Phone Care Team Providers Care Transportation Planner Name Role Phone Mono Chandni EDWARDS Unavailable [...] Diagnoses Date Provider Providers Copied on Encounter [facility] [facility] [address], [place], [place], [id number], tel:[phone] [place] No Information 0 1-201 4 Villareal Chandni. [address] [facility], [address], [place], [place], [facility], . tel: [phone] [facility] [address] [facility], [place], [place], [id number], tel:[phone] [place] No Information 0 2-201 4 Villareal Chandni. [address] [facility], [address], [place], [place], [facility], [place]. tel: [phone] Referring Provider: Delon Barry, [facility] [facility] [address], [place], [address]. tel:[phone] [facility] [address] [place], [place] [address], [place], [place], [id number], tel:[phone] [place] No Information Mar-3 0-201 4 Villareal Chandni. [address] [facility], [address], [place], [address], [place]. tel:[phone] Referring Provider: Delon Barry, [address] [place] [address] [address], [place], [address]. tel:[phone] [address], [place], [place], [address], [place] tel:[phone] [place] No Information Mar- 5-201 4 Villareal Chandni. [address] [place] [address], [address], [place], [address], [place]. tel:[phone] Referring Provider: Delon Barry, [address] [place] [address] [address], [place], [address]. tel:[phone] [address], [place], [place], [id number], [place] tel:[phone] [place] No Information Mar- 3-201 4 Villareal Chandni. [address] [place] [address], [address], [place], [address], [place]. tel:[phone] Referring Provider: Delon Barry, [address] [place] [address] [address], [place], [address]. tel:[phone] [address], [place], [place], [id number], [place] tel:[phone] [place] No Information 0-201 4 Villareal Chandni. [address] [place] [address], [address], [place], [address], [place]. tel:[phone] Referring Provider: Delon Barry, [address] [place] [address] [address], [place], [address]. tel:[phone] [address], [place], [id number], [place] tel:[phone] [place] No Information Mar- 8-201 4 Villareal Chandni. [address] [place] [address], [address], [place], [address], [place]. tel:[phone] Referring Provider: Delon Barry, [address] [place] [address] [address], [place], [address]. tel:[phone] [address], [place], [place], [id number], tel:[phone] [place] No Information Mar- 6-201 4 Villareal Chandni. [address] [place] [address], [address], [place], [place], [facility], [place]. tel:[phone] Referring Provider: Delon Barry, [address] [place] [address] [address], [place], [address]. tel:[phone], [place], [place], [id number], [place] tel:[phone] [place] No Information 2-201 4 Villareal Chandni. [address] [place] [address], [address], [place], [place], [facility], [place]. tel:[phone] Referring Provider: Delon Barry, [address] [place] [address] [address], [place], [address]. tel:[phone] [address], [place], [place], [id number], [place] tel:[phone] [place] No Information 9-201 4 Villareal Chandni. [address] [place] [address], [address], [place], [place], [facility], [place]. tel:[phone] Referring Provider: Delon Barry, [address] [place] [address] [address], [place], [address]. tel:[phone] [address], [place], [place], [id number], [place] tel:[phone] [place] No Information 0 6-201 4 Villareal Chandni. [address] [place] [address], [address], [place], [place], [facility], . tel:[phone] Referring Provider: Delon Barry, [address] [place] [address] [address], [place], [address]. tel:[phone] [address], [place], [place], [id number], tel:[phone] [place] No Information Karson-0 4-201 4 Villareal Chandni. [address] [place] [address], [address], [place], [facility], . tel: [phone] Referring Provider: Delon Barry, [address] [place] [address] [address], [place], [address]. tel:[phone], [place], [place], [id number], tel:[phone] [place] No Information Mar-0 3-201 4 Villareal Chandni. [address] [place] [address], [address], [place], [place], [facility], . tel:[phone] Referring Provider: Delon Barry, [address] [place] [address] [address], [place], [address]. tel:[phone], [place], [place], [id number], [place] tel:[phone] [place] No Information February-3 0-201 4 Villareal Chandni. [address] [place] [address], [address], [place], [place], [facility], . tel:[phone] Referring Provider: Delon Barry, [address] [place] [address] [address], [place], [address]. tel:[phone] [address], [place], [place], [id number], [place] tel:[phone] [place] No Information February-2 9-201 4 Villareal Chandni. [address] [place] [address], [address], [place], [place], [facility], . tel:[phone] Referring Provider: Delon Barry, [address] [place] [address] [address], [place], [address]. tel:[phone], [place], [place], [id number], tel:[phone] [place] No Information 4 Villarealdevaughn Rhodesi. [address] [facility], [address], [place], [place], [facility], . tel:[phone] Referring Provider: Delon Barry, [address] [place] [address] [address], [place], [address]. tel:[phone], [place], [place], [id number], tel:[phone] [place] Cervicalgia 4 Villareal Chandni. [address] [place] [address], [address], [place], [place], [facility], . [phone] Referring Provider: Delon Barry, [address] [place] [address] [address], [place], [address]. tel:[phone] Family History Family Member Type Diagnosis Age At Onset No Information Payers Payer name Insurance type Covered libertarian ID Authoriza tion(s) No Information Social History [...]
--- OUTSIDE RECORDS SUMMARY | 2025-03-11 11:50 | XMS_ITS | Clinical Summary ---
Author Organization [facility] Administrative Offices Address [address] [place] [address] Care Team Providers Care Energy Derivatives Trader Name Role Phone Paloma Delon Primary Care Provider [phone] Allergies Active Allergy Reactions Criticality Noted Date Comments Penicillins Rash Medium 07/21/2017 Medications Estradiol-Noreth indrone Acet 0.5-0.1 mg Tablet Take 1 Tablet by mouth daily. 01/04/2023 Active levothyroxine 25 mcg tablet Take 1 Tablet by mouth daily. 01/03/2024 Active DULoxetine (CYMBALTA) 30 mg Capsule, Delayed Release(E.C.)Ind ications:KATHLEEN (generalized anxiety disorder) TAKE 1 CAPSULE BY MOUTH DAILY 100 Capsule 3 12/20/2024 Active pantoprazole (PROTONIX) 40 mg Tablet, Delayed Release (E.C.)Indication s:Gastroesophage al reflux disease, unspecified whether esophagitis present TAKE 1 TABLET BY MOUTH DAILY 100 Tablet 3 12/20/2024 Active Active Problems Problem Noted Date Diagnosed Date Mass of thyroid gland 11/10/2024 Irritable bowel syndrome with constipation 01/17 Hyperlipidemia 06/23/2022 Subclinical hypothyroidism 06/23/2022 Gastroesophageal reflux disease 11/18/2019 KATHLEEN (generalized anxiety disorder) 11/18/2019 Resolved Problems Problem Noted Date Diagnosed Date Resolved Date Thyroiditis 11/18/2019 11/19/2020 Encounters Date Type Department Care Team Description 02/28/2025 External Device Data STL ABSTRACTION Provider, Abstract 02/06/2025 Telephone [facility] [place] [address] [facility] [facility] [place] [place] [phone] Arnel Altman MD Appointment Notification; Biopsy 02/02/2025 1:15 PM CDT - 02/02/2025 11:59 PM CDT Hospital Encounter [facility] Ultrasound [address] [place] [address] [place] [phone] Delon Dow, Discharge Disposition: Home or Self Care 01/13/2025 Orders Only [facility], [place] [place] [place] [phone] [facility] Pneumonia of right lower lobe due to infectious organism (Primary Dx) 01/12/2025 2:44 PM CDT - 01/12/2025 11:59 PM CDT Hospital Encounter [facility] CT Scan [place] [address] [place] [phone] Delon Dow, Discharge Disposition: Home or Self Care 01/12/2025 Results Follow-Up [facility], [place] [place] [place] [address] CORONARY CALCIUM SCORE 01/11/2025 External Device Data STL ABSTRACTION Provider, Abstract 01/09/2025 Abstract [facility], [place] [place] [place] [address] Delon Dow DO 01/09/2025 Telephone [facility], [place] [place] [place] [address] Delon Dow, 01/03/2025 External Device Data ST[place] ABSTRACTION Provider, Abstract 01/03/2025 External Device Data ST[place] ABSTRACTION Provider, Abstract 12/31/2024 External Device Data ST[place] ABSTRACTION Provider, Abstract 12/30/2024 External Device Data STL ABSTRACTION Provider, Abstract 12/27/2024 External Device Data STL ABSTRACTION Provider, Abstract 12/18/2024 Refill [facility], [place] [place] [place] [address] Karon García APRN KATHLEEN (generalized anxiety [...] Mother Ana Gardner PAF Hypertension Mother Ana Gardner Thyroid Disease Mother Ana Gardner Heart Disease Sister Yenni Cuellar Stroke Sister Yenni Cuellar Celiac Disease Neg Hx Relation Name Status Comments Father Franklin Harbkumar Alive Mother Ana Gardner Alive Sister Yenni [...] on file Legal Sex Female 5:54 AM HEEL STAINER Gender Identity Not on file Sexual Orientation Not on file Last Filed Vital Signs Vital Sign Reading Time Taken Comments Blood Pressure 112/80 11/10/2024 2:49 PM HEEL STAINER Pulse 70 11/10/2024 2:49 PM HEEL STAINER Temperature 36.7 C (98 F) 11/10/2024 2:49 PM HEEL STAINER Respiratory Rate 20 10/24/2020 9:53 AM HEEL STAINER Oxygen Saturation 96% 11/10/2024 2:49 PM HEEL STAINER Inhaled Oxygen Concentration - - Weight 70.8 kg (156 lb) 11/10/2024 2:49 PM HEEL STAINER Height 162.6 cm (5' 4 ) 11/10/2024 2:49 PM HEEL STAINER Body Mass Index 26.78 11/10/2024 2:49 PM HEEL STAINER Plan of Treatment Upcoming Encounters Date Type Department Care Team (Late st Contact Info) Description 04/25/2025 7:30 AM CDT Appointment [facility] [place] [address] [place] [address] [place] [address] [address] [place] [phone] 05/11/2025 10:00 AM CDT Office Visit [facility]cology [place] [address] [place] [place] [address] [place] [address] [address] [place] [address] 11/09/2025 3:20 PM HEEL STAINER Office Visit [facility], [place] [place] [place] [address] Delon Dow DO [address] [place] [address] [place] [phone] Health Maintenance Due Date Last Done Comments DTAP/TDAP/TD VACCINES (1 - Tdap) 1988 HEPATITIS B VACCINES (1 of 3 - 19+ 3-dose series) 1988 HPV/Cotest (21-29) 1990 CERVICAL CANCER SCREENING 1999 HPV/Cotest (30-65) 1999 PAP SMEAR 1999 FIT-DNA Q 3 years 2014 FIT/FOBT Q 1 year 2014 Flex Sig/CT Colonography Q 5 years 2014 ZOSTER VACCINE (1 of 2) 2019 COVID-19 Vaccine (2023-2 5 season) 2024 01/12/2021, 12/15/2020 BREAST CANCER SCREENING 12/01/2025 12/01/19, 11/10/2023, 01/06/2020 Pre-Diabetes and Diabetes Screening 12/01/2027 12/01/2024, 09/29/2023, 01/25/2021, Additional history exists COLORECTAL SCREENING 09/17/2032 09/17/2022 Colorectal Cancer Screening 09/17/2032 INFLUENZA VACCINE Completed 11/10/2024, , 11/10/2023, Additional history exists Preventative Visit- Commercial Completed 0 11/10/2024, 09/29/2023, 11/19/2020, Additional history exists Medical Devices Implanted Type Area Bedspread Folder Device Identifier Shelf Expiration Date Model / Serial / Lot Endo Clip Ii 10mm [id number] - [id number] Implanted:Qty : 1 on 10/24/2020 by Ramakrishna Anna MD at [facility] Clip N/A: Abdomen [employer] - COVIDIEN [id number] 11/25/2024 [id number] / / [id number] Procedures Procedure Name Priority Date/Time Associated Diagnosis Comments US HEAD NECK TISSUES Routine 02/02/2025 1:47 PM CDT Mass of thyroid gland CT CORONARY CALCIUM SCORE Routine 01/12/2025 3:30 PM CDT Mixed hyperlipidemia MAMMO 3D NITA SCREEN IMPL BILAT W OR WO CAD Routine 12/01/2024 5:24 PM HEEL STAINER Encounter for screening mammogram for breast cancer HEMOGLOBIN A1C Routine 12/01/2024 10:11 AM HEEL STAINER Encounter for general adult medical examination with abnormal findings ENDOSCOPY, COLON, SCREENING Routine 09/17/2022 3:07 PM HEEL STAINER from Last 3 Months or Most Recently Relevant to Health Maintenance Results * US HEAD NECK TISSUES (02/02/2025 1:47 PM CDT) Anatomical Region Laterality Modality Head Ultrasound 02/02/2025 1:50 PM CDT Impressions 02/02/2025 4:23 PM CDT IMPRESSION: Again noted is a solid lesion along the inferior aspect of the left thyroid lobe. This has shown continued increase in size. Although this may represent exophytic thyroid tissue, given its interval increase in size, fine-needle aspiration is recommended. According to TI RADS criteria the additional small bilateral thyroid nodules do not require imaging follow-up. DICTATION LOCATION: Location 4 ACR 2017 TI-RADS Recommendations TR5 Highly suspicious (>=7 points) (risk of malignancy > 20%) >=1 cm: FNA 0.5-0.9 cm: follow-up US every year for 5 years <0.5 cm: no further evaluation TR4 Moderately suspicious (4-6 points) (risk of malignancy 5-20%) >=1.5 cm: FNA 1-1.4 cm: follow-up US in 1, 2, 3, and 5 years <1.0 cm: no further evaluation TR3 Mildly suspicious (3 points) (risk of malignancy 2-5%) >=2.5 cm: FNA 1.5-2.4 cm: follow-up US in 1, 3, and 5 years <1.5 cm: no further evaluation TR2 Not suspicious (2 points) and TR1 Benign (0 points) (risk of malignancy < 2%) No FNA or follow-up US Narrative 02/02/2025 4:23 PM CDT ULTRASOUND NECK TISSUES DATE: 02/02/2025 1:47 PM HISTORY: Mass of thyroid gland; COMPARISON: 02/16/2024 FINDINGS: The right thyroid lobe measures 3.9 x 0.8 x 1.2 cm. The left thyroid lobe measures 4.5 x 0.5 x 1.0 cm. The isthmus measures 1.3 mm. The thyroid gland is homogeneous in echotexture. NODULE 1: Right lobe inferior pole measures 6 x 5 x 4 mm Composition: Solid Echogenicity: Hyper- or isoechoic: 1 point Shape: Wider than tall: 0 points Margin: Ill-defined: 0 points Echogenic foci: None: 0 points Total points: 1 ACR TI-RADS risk category: TR1: 0 points - Benign No FNA required. NODULE 2: Left lobe inferior pole measures 1.0 x 0.5 x 0.5 cm Composition: Solid or almost completely solid - 2 points Echogenicity: Hyper- or isoechoic: 1 point Shape: Wider than tall: 0 points Margin: Ill-defined: 0 points Echogenic foci: None: 0 points Total points: 3 ACR TI-RADS risk category: TR3: 3 points - Mildly suspicious If nodule greater than or equal to 1.5 cm - followup. If nodule greater than or equal to 2.5 cm - FNA - Followup: 1, 3 and 5 years NODULE 3: Left lobe inferior and/or exophytic pole measures 2.5 x 1.8 x 1.8 cm. This has increased in size previously measuring 2.0 x 1.4 x 1.9 cm. Composition: Solid or almost completely solid - 2 points Echogenicity: Hypoechoic: 2 points Shape: Wider than tall: 0 points Margin: Smooth: 0 points Echogenic foci: None: 0 points Total points: 4 ACR TI-RADS risk category: TR4: 4-6 points - Moderately suspicious If nodule greater than or equal to 1 cm - followup If nodule greater than or equal to 1.5 cm - FNA - Followup: 1, 2, 3 and 5 years Procedure Note Lawanda Lujan MD - 02/02/2025 ULTRASOUND NECK TISSUES DATE: 02/02/2025 1:47 PM HISTORY: Mass of thyroid gland; COMPARISON: 02/16/2024 FINDINGS: The right thyroid lobe measures 3.9 x 0.8 x 1.2 cm. The left thyroid lobe measures 4.5 x 0.5 x 1.0 cm. The isthmus measures 1.3 mm. The thyroid gland is homogeneous in echotexture. NODULE 1: Right lobe inferior pole measures 6 x 5 x 4 mm Composition: Solid Echogenicity: Hyper- or isoechoic: 1 point Shape: Wider than tall: 0 points Margin: Ill-defined: 0 points Echogenic foci: None: 0 points Total points: 1 ACR TI-RADS risk category: TR1: 0 points - Benign No FNA required. NODULE 2: Left lobe inferior pole measures 1.0 x 0.5 x 0.5 cm Composition: Solid or almost completely solid - 2 points Echogenicity: Hyper- or isoechoic: 1 point Shape: Wider than tall: 0 points Margin: Ill-defined: 0 points Echogenic foci: None: 0 points Total points: 3 ACR TI-RADS risk category: TR3: 3 points - Mildly suspicious If nodule greater than or equal to 1.5 cm - followup. If nodule greater than or equal to 2.5 cm - FNA - Followup: 1, 3 and 5 years NODULE 3: Left lobe inferior and/or exophytic pole measures 2.5 x 1.8 x 1.8 cm. This has increased in size previously measuring 2.0 x 1.4 x 1.9 cm. Composition: Solid or almost completely solid - 2 points Echogenicity: Hypoechoic: 2 points Shape: Wider than tall: 0 points Margin: Smooth: 0 points Echogenic foci: None: 0 points Total points: 4 ACR TI-RADS risk category: TR4: 4-6 points - Moderately suspicious If nodule greater than or equal to 1 cm - followup If nodule greater than or equal to 1.5 cm - FNA - Followup: 1, 2, 3 and 5 years IMPRESSION: Again noted is a solid lesion along the inferior aspect of the left thyroid lobe. This has shown continued increase in size. Although this may represent exophytic thyroid tissue, given its interval increase in size, fine-needle aspiration is recommended. According to TI RADS criteria the additional small bilateral thyroid nodules do not require imaging follow-up. DICTATION LOCATION: Location 4 ACR 2017 TI-RADS Recommendations TR5 Highly suspicious (>=7 points) (risk of malignancy > 20%) >=1 cm: FNA 0.5-0.9 cm: follow-up US every year for 5 years <0.5 cm: no further evaluation TR4 Moderately suspicious (4-6 points) (risk of malignancy 5-20%) >=1.5 cm: FNA 1-1.4 cm: follow-up US in 1, 2, 3, and 5 years <1.0 cm: no further evaluation TR3 Mildly suspicious (3 points) (risk of malignancy 2-5%) >=2.5 cm: FNA 1.5-2.4 cm: follow-up US in 1, 3, and 5 years <1.5 cm: no further evaluation TR2 Not suspicious (2 points) and TR1 Benign (0 points) (risk of malignancy < 2%) No FNA or follow-up US us Delon Dow DO US ORDERABLES Final Result * CT CORONARY CALCIUM SCORE (01/12/2025 3:30 PM CDT) 01/12/2025 3:25 PM CDT Impressions INTERFACE SYSTEM - 01/12/2025 4:05 PM CDT IMPRESSION: Agatston Calcium Score: Agatston Calcium Score: 0 consistent with very low risk for future cardiac events. The Agatston Coronary Calcium Score is one of several screening factors that may be used to predict coronary artery disease. Please consult your healthcare provider to learn whether further evaluation of your cardiac risk is necessary. Ascending Aorta: 3.2 cm Normal: < 4 cm diameter Aortic ectasia: > 4.0 and <= 4.5 cm Aortic aneurysm: >= 4.5 cm Other findings: Focal pneumonitis in the posterior basal segment right lower lobe. Dictated by Dr. Jerman Cotton DICTATION LOCATION: 1 [facility] INTERFACE SYSTEM - 01/12/2025 4:[address] CARDIAC SCORING - Coronary Artery Calcium (CAC) Score. DATE: 01/12/2025 3:30 PM HISTORY: Mixed hyperlipidemia. Atherosclerotic cardiovascular disease (ASCVD) risk stratification. Procedure: A standard prospective cardiac-gated CAC scoring protocol was used for image acquisition on a GE 256-slice CT scanner. CAC scan was interpreted using the Agatston's Scoring formula. An age/sex/race-adjusted score percentile was derived by comparison of the score with Multi-Ethnic Study of Atherosclerosis (BARRIOS) reference population. The examination was performed with the adjustment of mA according to the patient size and/or the use of Iterative Reconstruction Technique. CT Dose Length Product (DLP): 92.29 mGy-cm. Technical Quality: Satisfactory. Pericardium: Normal. Aortic Valve: No calcification. Ascending Aorta: 3.2 cm. Thoracic Aorta: No calcification. Mitral Annulus: No calcification. Other findings: Bilateral breast augmentation. Minor areas of groundglass opacification in the mid azygoesophageal recess of the right lower. Skeletal structures are normal. Total Agatston CAC Score: 0 Left main: 0 LAD: 0 LCX: 0 RCA: 0 PDA: 0 No further evaluation is recommended Left main and/or multi-vessel coronary calcifications per Usefulness of regional distribution of coronary artery calcium to improve the prediction of all-cause mortality. Mau-Donato R et al. Am J Cardiol. 2015 February 23;115:6245-0579. CAC-DRS Category: A 0 N 0 A = Agatston Scoring N = Number of Vessels CAC-DRS: Coronary Artery Calcium Data and Reporting System. An expert consensus Document of the Society of Cardiovascular Computed Tomography (SCCT). J Cardiovasc Comp Colin; 12 (2018):185-191. Score: 0 Agatston's Score: 0 No identifiable atherosclerotic plaque. Cardiac Risk: Very low risk of significant CAD. Score: 1 Agatston's Score: 1-99 Moderate degree of identifiable plaque. Cardiac Risk: Mild or minimal coronary stenosis likely. Score: 2 Agatston's Score: 100-299 Moderate degree of identifiable plaque. Cardiac Risk: Moderately increased risk of significant CAD. Score: 3 Agatston's Score: > 300 Extensive calcified plaque. Cardiac Risk: Severely increased risk of significant CAD. Procedure Note Jerman Cotton MD - 01/12/2025 CT CARDIAC SCORING - Coronary Artery Calcium (CAC) Score. DATE: 01/12/2025 3:30 PM HISTORY: Mixed hyperlipidemia. Atherosclerotic cardiovascular disease (ASCVD) risk stratification. Procedure: A standard prospective cardiac-gated CAC scoring protocol was used for image acquisition on a GE 256-slice CT scanner. CAC scan was interpreted using the Agatston's Scoring formula. An age/sex/race-adjusted score percentile was derived by comparison of the score with Multi-Ethnic Study of Atherosclerosis (BARRIOS) reference population. The examination was performed with the adjustment of mA according to the patient size and/or the use of Iterative Reconstruction Technique. CT Dose Length Product (DLP): 92.29 mGy-cm. Technical Quality: Satisfactory. Pericardium: Normal. Aortic Valve: No calcification. Ascending Aorta: 3.2 cm. Thoracic Aorta: No calcification. Mitral Annulus: No calcification. Other findings: Bilateral breast augmentation. Minor areas of groundglass opacification in the mid azygoesophageal recess of the right lower. Skeletal structures are normal. Total Agatston CAC Score: 0 Left main: 0 LAD: 0 LCX: 0 RCA: 0 PDA: 0 No further evaluation is recommended Left main and/or multi-vessel coronary calcifications per Usefulness of regional distribution of coronary artery calcium to improve the prediction of all-cause mortality. Mau-Donato R et al. Am J Cardiol. 2015 February 23;115:5759-5401. CAC-DRS Category: A 0 N 0 A = Agatston Scoring N = Number of Vessels CAC-DRS: Coronary Artery Calcium Data and Reporting System. An expert consensus Document of the Society of Cardiovascular Computed Tomography (SCCT). J Cardiovasc Comp Colin; 12 (2018):185-191. Score: 0 Agatston's Score: 0 No identifiable atherosclerotic plaque. Cardiac Risk: Very low risk of significant CAD. Score: 1 Agatston's Score: 1-99 Moderate degree of identifiable plaque. Cardiac Risk: Mild or minimal coronary stenosis likely. Score: 2 Agatston's Score: 100-299 Moderate degree of identifiable plaque. Cardiac Risk: Moderately increased risk of significant CAD. Score: 3 Agatston's Score: > 300 Extensive calcified plaque. Cardiac Risk: Severely increased risk of significant CAD. IMPRESSION: Agatston Calcium Score: Agatston Calcium Score: 0 consistent with very low risk for future cardiac events. The Agatston Coronary Calcium Score is one of several screening factors that may be used to predict coronary artery disease. Please consult your healthcare provider to learn whether further evaluation of your cardiac risk is necessary. Ascending Aorta: 3.2 cm Normal: < 4 cm diameter Aortic ectasia: > 4.0 and <= 4.5 cm Aortic aneurysm: >= 4.5 cm Other findings: Focal pneumonitis in the posterior basal segment right lower lobe. Dictated by Dr. Jerman Cotton DICTATION LOCATION: [address] ORDERABLES Final Result INTERFACE SYSTEM Refer to clinic/hospital department * MAMMO 3D NITA SCREEN IMPL BILAT W OR WO CAD (12/01/2024 5:24 PM HEEL STAINER) Anatomical Region Laterality Modality Breast Bilateral Mammography 12/01/2024 5:26 PM HEEL STAINER Impressions 12/02/2024 7:26 AM HEEL STAINER IMPRESSION: No suspicious findings to suggest malignancy in either breast. Annual mammography is recommended. OVERALL FINAL ASSESSMENT: BI-RADS CATEGORY 2 - Benign findings DICTATION LOCATION: [facility] 12/02/2024 7:26 AM HEEL STAINER BILATERAL SCREENING DIGITAL IMPLANT MAMMOGRAM WITH 3D [...] Dow DO MAMMO ORDERABLES Final Result * HEMOGLOBIN A1C (12/01/2024 10:11 AM HEEL STAINER) HEMOGLOBIN A1C 5.4 <5.7 % of total Hgb [employer]na Lenz Comment: For the purpose of screening for the presence of diabetes: <5.7% Consistent with the absence of diabetes 5.7-6.4% Consistent with increased risk for diabetes (prediabetes) > or =6.5% Consistent with diabetes This assay result is consistent with a decreased risk of diabetes. Currently, no consensus exists regarding use of hemoglobin A1c for diagnosis of diabetes in children. According to [place] Diabetes Association (ADA) guidelines, hemoglobin A1c <7.0% represents optimal control in non- diabetic patients. Different metrics may apply to specific patient populations. Standards of Medical Care in Diabetes(ADA). ESTIMATED AVERAGE GLUCOSE (MG/DL) 108 mg/dL SocialGuidesDayna dee Lenz ESTIMATED AVERAGE GLUCOSE (MMOL/L) 6.0 mmol/L [employer]idesDayna dee Lenz Comment: FASTING:YES FASTING: YES Test Performed at: [facility] [place] [address] [address] [place] [id number] AbigailCarlosJessica Rodriges Blood 12/01/2024 10:1 1 AM HEEL STAINER 12/01/2024 10:12 AM HEEL STAINER Delon Dow DO CHEMISTRY ORDERABLES Final Resul t [facility] [phone] [facility] [place] [address] [address] [place] [address] * ENDOSCOPY, COLON, SCREENING (09/17/2022 3:07 PM HEEL STAINER) Khadar Reid MD GI PROCEDURE ORDERABLES Final Re sult [facility] [id number] [address] [facility] [place] [address] from Last 3 Months or Most Recently Relevant to Health Maintenance Insurance [facility] [id number] RX [employer] Member Subscriber Plan / Payer (Ef fective for All Dates) Name:Nadeem Brooks Relation to Subscriber:Self Name:Nadeem Brooks Payer ID:Not on file Group ID:[id number] Type:RX Commercial Address: [address] Advance Directives For more information, please contact: [phone] * Full Code (Latest Code Status on File) Date Activated Date Inactivated Comments 10/24/2020 7:53 AM 10/24/2020 2:44 PM * Full Code Date Activated Date Inactivated Comments 10/24/2020 5:45 AM 10/24/2020 7:52 AM Care Teams Energy Derivatives Trader Relationship Specialty Start Date End Date Delon Dow DO [address] [facility] [place] [address] [place] [id number] PCP - General Internal Medicine 11/18/19
== END 2025-03-10 16:25 | disposition home or self-care (01) ==
PROVIDERS: Emergency Provider Nurse Practitioner
DX: H92.02 Otalgia, left ear (principal)
CPT/HCPCS: 99211; G0463

== ENCOUNTER 2025-04-05 18:22 | Emergency (ER) | payer OTHER, SELFPAY ==
--- NOTE | ~2025-04-05 | XR_ITS ---
XR chest 2V Ordering provider: Kevan Sanabria APRN History: 54 years Female with . productive cough, fever, sob . Comparison: January 08, 2025 FINDINGS: MEDIASTINUM: The cardiac silhouette is not enlarged. LUNGS: No infiltrates, effusions or pneumothorax. OTHER: No free air under the diaphragm. IMPRESSION: No acute cardiopulmonary pathology. Reviewed, dictated and finalized at location A.
--- NOTE | 2025-04-05 18:24 | ED.URI ---
HPI - URI/Sore Throat General Chief Complaint: Upper Respiratory Infection Stated Complaint: cough / congestion Time Seen by Provider: 04/05/25 18:24 Source: patient Mode of arrival: ambulatory Limitations: no limitations History of Present Illness HPI Narrative: Eleni is a 54-year-old female patient presenting to the clinic today with complaints of fever, sore throat, headache, sinus pressure, weakness, fatigue, cough, congestion, and feeling shortness of breath x1 week. She reports highest fever was a 101. Cough is productive with yellow phlegm. Denies any chest pain. Recent pneumonia back in January-symptoms resolved after taking antibiotics. Related Data Home Medications ?Medication ?Instructions ?Recorded ?Confirmed ?Last Taken ?Type estradiol-norethindrone acet 0.5 1 tablet PO DAILY 09/12/22 08/22/24 09/16/22 History mg-0.1 mg tablet levothyroxine 25 mcg tablet 25 mcg PO DAILY 08/22/24 08/22/24 Unknown History fluticasone propionate 50 1 spray intranasal DAILY PRN 01/08/25 01/08/25 Unknown History mcg/actuation nasal allergy symptoms spray,suspension Allergies Allergy/AdvReac Type Severity Reaction Status Date / Time Penicillins Allergy Mild Rash Verified 04/05/25 18:31 Quinolones Allergy Mild HIVES Verified 04/05/25 18:31 vancomycin AdvReac Mild Itching Verified 04/05/25 18:31 Review of Systems Review of Systems: Pertinent positives per HPI. Patient denies any fever, chills, rash, headache, visual changes, dizziness, shortness of breath, chest pain, palpitations, nausea, vomiting, diarrhea, constipation, abdominal pain, or any urinary issues. [facility] Past Medical History Medical History Hypothyroidism GERD (gastroesophageal reflux disease) Davila's palsy Overweight (BMI 25.0-29.9) Surgical History Surgical History History of right oophorectomy History of endometrial ablation History of cholecystectomy History of appendectomy Family History Family History Mother Hypertension Family history of hypothyroidism Father Family history of elevated blood lipids Family history of cardiovascular disease Social History Social History Smoking status: Never smoker Alcohol intake: current Drinks per week: 2 Substance use type: does not use Living arrangements: with family Comments At the time of my signature, I reviewed and agree with the nursing past medical, surgical, social, and family history. There is no relevant family history pertinent to the patient complaint. Exam Narrative: General: Well-developed, well nourished, in no apparent distress Head: Normocephalic, atraumatic Eyes: Pupils equally round and reactive to light bilaterally, EOM intact, sclera and conjunctive clear, no discharge, lids normal Ears: TMs intact and congested, ear canals clear, no drainage, grossly hearing normal. Nose: Nares patent, clear nasal discharge, moderate inflammation, maxillary sinus tenderness. Mouth: Oral pharynx mildly red without lesions or masses, good dentition, MMM. Neck: Supple, trachea midline, no enlargement of anterior or posterior cervical nodes, no thyroid masses or goiter palpable. Cardio: Regular rate and rhythm, s1 and s2 normal, no murmur appreciated. Resp: Crackles in the left lower base, wheezing in the right upper lobe, no rhonchi or rubs Course Course Emergency Course: Portions of this record may have been created with voice recognition software. Level of Care: Express Care Visit Vital Signs Vital signs: Vital Signs Temperature 36.5 C 04/05/25 18:28 Pulse Rate 89 04/05/25 18:28 Respiratory Rate 16 04/05/25 18:28 Blood Pressure 126/73 04/05/25 18:28 Pulse Oximetry 99 04/05/25 18:28 Oxygen Delivery Room Air 04/05/25 18:28 Temperature 36.5 C 04/05/25 18:28 Pulse Rate 89 04/05/25 18:28 Respiratory Rate 16 04/05/25 18:28 Blood Pressure 126/73 04/05/25 18:28 Pulse Oximetry 99 04/05/25 18:28 Oxygen Delivery Room Air 04/05/25 18:28 Vital signs reviewed MDM - URI/Sore Throat MDM Narrative Medical decision making narrative: At the time of visit patient is resting comfortably on the exam table. Patient appears to be nontoxic. Labs: Strep test was obtained and was negative in the clinic today. Diagnostics: Chest x-ray was performed and was negative for any acute cardiopulmonary process Plan: I suspect patient has acute sinusitis/bronchitis. Prescription for doxycycline and prednisone was sent to the pharmacy. Supportive measures were discussed with the patient and they voiced understanding discharge instructions and agrees to treatment plan. Return precautions reviewed Differential Diagnosis Differential diagnosis: Likely upper respiratory infection, otitis media, sinusitis, viral infection, bronchitis, influenza, pharyngitis and other (COVID) Lab Data Labs: Lab Results 04/05/25 Range/Units 18:31 POC Grp A Strep Screen Negative (Negative) Discharge Plan Discharge Clinical Impression: Bronchitis Sinusitis Qualifiers: Sinusitis location: maxillary Chronicity: acute Recurrence: non-recurrent Qualified Code(s): J01.00 - Acute maxillary sinusitis, unspecified Patient Disposition: Home Condition: Stable Instructions: Antibiotic Form, Acute Bronchitis (ED), Rhinosinusitis (ED) Additional Instructions: Strep test was negative in the clinic. We will send strep for culture Chest x-rays negative for any acute cardiopulmonary process. Take prescription medications only as prescribed-doxycycline and prednisone May continue current medications Increase fluids and stay well hydrated Tylenol/motrin for pain/fever Flonase and OTC antihistamines as directed Vicks vapor rub to open sinuses Sinus rinses for congestion Cepacol spray, cough drops, throat lozenges, warm tea with honey/lemon, gargle salt water to soothe throat BRAT diet for diarrhea Clear liquids x 24 hours then advance as tolerated for nausea/vomiting Go to the ED if you develop a worsening in your condition- high fever not controlled by Tylenol or Motrin, dehydration, weakness, lethargy, shortness of breath, or chest pain. Follow up with your PCP in 3-5 days if symptoms persist. Patient Language: Ghanaian Prescriptions: New prednisone 20 mg tablet 40 mg PO DAILY 5 Days Qty: 10 0RF doxycycline monohydrate 100 mg capsule 100 mg PO BID 7 Days Qty: 14 0RF No Action estradiol-norethindrone acet 0.5-0.1 mg tablet 1 tablet PO DAILY fluticasone propionate 50 mcg/actuation spray,suspension 1 spray intranasal DAILY PRN (Reason: allergy symptoms) Rx Instructions: administer into each nostril albuterol sulfate 90 mcg/actuation HFA aerosol inhaler 2 inh inhalation Q4-6H PRN (Reason: shortness of breath or wheezing) Qty: 8.5 0RF (DME) BreatheRite MDI Spacer Spacer See Rx Instructions .ROUTE .MEDSUPPLY Qty: 1 0RF Rx Instructions: As directed benzonatate 200 mg capsule 200 mg PO TID PRN (Reason: cough) Qty: 30 0RF levothyroxine 25 mcg tablet 25 mcg PO DAILY duloxetine 30 mg capsule,delayed release(DR/EC) 30 mg PO DAILY Qty: 90 0RF pantoprazole 40 mg tablet,delayed release (DR/EC) 40 mg PO DAILY Qty: 90 0RF Follow-up/Referrals: UNKNOWN,DOCTOR [Non-Staff] - Time of Disposition: 19:00 Quality NIHSS Nursing Documentation ED NIHSS nursing documentation: reviewed/agree
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
--- OUTSIDE RECORDS SUMMARY | 2025-04-05 18:25 | XMS_ITS | Clinical Summary ---
Author Organization [facility] Address [address] [place] [address] Care Team Providers Care Meat Processing Center Manager Name Role Phone Paloma Delon Primary Care Provider [phone] Allergies Active Allergy Reactions Criticality Noted Date [...] Encounters Date Type Department Care Team Description 03/16/2025 External Device Data [facility] Provider, Abstract 03/15/2025 External Device Data [facility] Provider, Abstract 03/14/2025 External Device Data [facility] Provider, Abstract 02/28/2025 External Device Data [facility] Provider, Abstract 02/06/2025 Telephone [facility] [place] [address] [place] [address] Arnel Altman MD Appointment Notification; Biopsy 02/02/2025 1:15 PM CDT - 02/02/2025 11:59 PM CDT Hospital Encounter [facility] [address]trasound [address] [place] [phone] Delon Dow, Discharge Disposition: Home or Self Care 01/13/2025 Orders Only [facility], [address] [place] [address] Susan Howell, ANA LUISA Pneumonia of right lower lobe due to infectious organism (Primary Dx) 01/12/2025 2:44 PM CDT - 01/12/2025 11:59 PM CDT Hospital Encounter [facility] CT Scan [address] [place] [address] [place] [phone] Delon Dow, Discharge Disposition: Home or Self Care 01/12/2025 Results Follow-Up [facility], [place] [place] [phone] Susan Howell, ANA LUISA CT CORONARY CALCIUM SCORE 01/11/2025 External Device Data [facility] Provider, Abstract 01/09/2025 Abstract [facility], [place] [place] [address] Delon Dow DO 01/09/2025 Telephone [facility], [place] [place] [address] Delon Dow DO 01/03/2025 External Device Data [facility]STRACTION Provider, [...] Mother Ana Gardner Thyroid Disease Mother Ana Irizarryison Heart Disease Sister Yenni Cuellar Stroke Sister [...] on file Legal Sex Female 5:54 AM STRETCHER HELPER Gender Identity Not on file Sexual Orientation Not on file Last Filed Vital Signs Vital Sign Reading Time Taken Comments Blood Pressure 112/80 11/10/2024 2:49 PM STRETCHER HELPER Pulse 70 11/10/2024 2:49 PM STRETCHER HELPER Temperature 36.7 C (98 F) 11/10/2024 2:49 PM STRETCHER HELPER Respiratory Rate 20 10/24/2020 9:53 AM STRETCHER HELPER Oxygen Saturation 96% 11/10/2024 2:49 PM STRETCHER HELPER Inhaled Oxygen Concentration - - Weight 70.8 kg (156 lb) 11/10/2024 2:49 PM STRETCHER HELPER Height 162.6 cm (5' 4) 11/10/2024 2:49 PM STRETCHER HELPER Body Mass Index 26.78 11/10/2024 2:49 PM STRETCHER HELPER Plan of Treatment Upcoming Encounters Date Type Department Care Team (Late st Contact Info) Description 04/25/2025 7:30 AM CDT Appointment [facility] [address] [place] [address] [place] [address] [address] [place] [address] 05/11/2025 10:00 AM CDT Office Visit [facility] Delon Carlson [facility] [address] [place] [phone] [place] [address] [place] [address] 11/09/2025 3:20 PM STRETCHER HELPER Office Visit [facility] Primary Care - [facility], [place] [place] [address] Delon Dow DO [address] [place] [address] Health Maintenance Due Date Last Done Comments DTAP/TDAP/TD VACCINES (1 - Tdap) 1988 HEPATITIS B VACCINES (1 of 3 - 19+ 3-dose series) 1988 HPV/Cotest (21-29) 1990 CERVICAL CANCER SCREENING 1999 HPV/Cotest (30-65) 1999 PAP SMEAR 1999 FIT-DNA Q 3 years 2014 FIT/FOBT Q 1 year 2014 Flex Sig/CT Colonography Q 5 years 2014 ZOSTER VACCINE (1 of 2) 2019 COVID-19 Vaccine ( - 2023-2 5 season) 2024 01/12/2021, 12/15/2020 BREAST CANCER SCREENING 12/01/2025 12/01/19, 11/10/2023, 01/06/2020 Pre-Diabetes and Diabetes Screening 12/01/2027 12/01/2024, 09/29/2023, 01/25/2021, Additional history exists COLORECTAL SCREENING 09/17/2032 09/17/2022 Colorectal Cancer Screening 09/17/2032 INFLUENZA VACCINE Completed 11/10/2024, , 11/10/2023, Additional history exists Preventative Visit- Commercial Completed 0 11/10/2024, 09/29/2023, 11/19/2020, Additional history exists Medical Devices Implanted Type Area Journeyman Sheet Metal Worker Device Identifier Shelf Expiration Date Model / Serial / Lot Endo Clip Ii 10mm [id number] - [id number] Implanted:Qty : 1 on 10/24/2020 by Ramakrishna Anna MD at [facility] Clip N/A: Abdomen [employer] - COVIDIEN [id number] 11/25/2024 [id number] / / [id number] Procedures Procedure Name Priority Date/Time Associated Diagnosis Comments US HEAD NECK TISSUES Routine 02/02/2025 1:47 PM CDT Mass of thyroid gland CT CORONARY CALCIUM SCORE Routine 01/12/2025 3:30 PM CDT Mixed hyperlipidemia MAMMO 3D NITA SCREEN IMPL BILAT W OR WO CAD Routine 12/01/2024 5:24 PM STRETCHER HELPER Encounter for screening mammogram for breast cancer HEMOGLOBIN A1C Routine 12/01/2024 10:11 AM STRETCHER HELPER Encounter for general adult medical examination with abnormal findings ENDOSCOPY, COLON, SCREENING Routine 09/17/2022 3:07 PM STRETCHER HELPER from Last 3 Months or Most Recently [...] by Dr. Jerman Cotton DICTATION LOCATION: 1 Narrative INTERFACE SYSTEM - 01/12/2025 4:05 PM CDT [...] to improve the prediction of all-cause mortality. Cielo Preston et al. Am J Cardiol. 2015 February 23;115:2844-4122. CAC-DRS Category: A 0 N 0 A [...] et al. Am J Cardiol. 2015 February 23;115:2359-7662. CAC-DRS Category: A 0 N 0 A [...] by Dr. Jerman Cotton DICTATION LOCATION: [address] DO [address] ORDERABLES Final Result INTERFACE SYSTEM Refer to clinic/hospital department * MAMMO 3D NITA SCREEN IMPL BILAT W OR WO CAD (12/01/2024 5:24 PM STRETCHER HELPER) Anatomical Region Laterality Modality Breast Bilateral Mammography 12/01/2024 5:26 PM STRETCHER HELPER Impressions 12/02/2024 7:26 AM STRETCHER HELPER IMPRESSION: No suspicious findings to suggest malignancy in either breast. Annual mammography is recommended. OVERALL FINAL ASSESSMENT: BI-RADS CATEGORY 2 - Benign findings DICTATION LOCATION: Elizabeth Olson 12/02/2024 7:26 AM STRETCHER HELPER BILATERAL SCREENING DIGITAL IMPLANT MAMMOGRAM WITH 3D [...] used in the interpretation of this examination. us Delon Dow DO MAMMO ORDERABLES Final Result * HEMOGLOBIN A1C (12/01/2024 10:11 AM STRETCHER HELPER) HEMOGLOBIN A1C 5.4 <5.7 % of total Hgb [facility] EHRDayna Lenz Comment: For the purpose of screening for the presence of diabetes: <5.7% Consistent with the absence of diabetes 5.7-6.4% Consistent with increased risk for diabetes (prediabetes) > or =6.5% Consistent with diabetes This assay result is consistent with a decreased risk of diabetes. Currently, no consensus exists regarding use of hemoglobin A1c for diagnosis of diabetes in children. According to British Diabetes Association (ADA) guidelines, hemoglobin A1c <7.0% represents optimal control in non- diabetic patients. Different metrics may apply to specific patient populations. Standards of Medical Care in Diabetes(ADA). ESTIMATED AVERAGE GLUCOSE (MG/DL) 108 mg/dL [facility] ESTIMATED AVERAGE GLUCOSE (MMOL/L) 6.0 mmol/L [facility] dee Lenz Comment: FASTING:YES FASTING: YES Test Performed at: [facility] [place] [address] [place] [address] Parker Rodriges Blood 12/01/2024 10:1 1 AM STRETCHER HELPER 12/01/2024 10:12 AM STRETCHER HELPER Delon Dow DO CHEMISTRY ORDERABLES Final Resul t Performing Organization Address City/[facility]/ZIP Code Phone Number [facility] [phone] [place] [address] [place] [address] * ENDOSCOPY, COLON, SCREENING (09/17/2022 3:07 PM STRETCHER HELPER) us Khadar Reid MD GI PROCEDURE ORDERABLES Final Re sult [facility] [id number] [address], [address] [place] [address] from Last 3 Months or Most Recently Relevant to Health Maintenance Insurance [employer] [id number] RX [employer] RX Member Subscriber Plan / Payer (Ef fective for All Dates) Name:Nadeem Brooks Relation to Subscriber:Self Name:Nadeem Brooks Payer ID:Not on file Group ID:[id number] Type:RX Commercial Address: [address] COOK Advance Directives For more information, please contact: [phone] * Full Code (Latest Code Status on File) Date Activated Date Inactivated Comments 10/24/2020 7:53 AM 10/24/2020 2:44 PM * Full Code Date Activated Date Inactivated Comments 10/24/2020 5:45 AM 10/24/2020 7:52 AM Care Teams Meat Processing Center Manager Relationship Specialty Start Date End Date Delon Dow DO [address] [place] [address] PCP - General Internal Medicine 11/18/19
--- OUTSIDE RECORDS SUMMARY | 2025-04-05 18:25 | XMS_ITS | Continuity of Care Document ---
Author Organization [employer] [place] Address [address] [place] [address] [address] [place] [address] Phone Care Team Providers Care Structural Steel Engineer Name Role Phone Mono Chandni EDWARDS Unavailable [...] Diagnoses Date Provider Providers Copied on Encounter [facility] [facility] [address], [place], [place], [id number], tel:[phone] [place] No Information 0 1-201 4 Villareal Chandni. [address] [facility], [address], [place], [place], [facility], . tel: [phone] [facility] [address], [place], [place], [id number], tel:[phone] [place] No Information 0 2-201 4 Villareal Chandni. [address] [address] [facility], [address], [place], [place], [facility], [place]. tel: [phone] Referring Provider: Delon Barry, [facility] [facility] [address], [place], [address]. tel:[phone] [facility] [address] [place], [place] [address], [place], [place], [id number], tel:[phone] [place] No Information Mar-3 0-201 4 Villareal Chandni. [address] [facility], [address], [place], [address], [place]. tel:[phone] Referring Provider: Delon Barry, [address] [place] [address] [address], [place], [address]. tel:[phone] [address], [place], [place], [id number], [place] tel:[phone] [place] No Information Mar- 5-201 4 Villareal Chandni. [address] [place] [address], [address], [place], [address], [place]. tel:[phone] Referring Provider: Delon Barry, [address] [place] [address] [address], [place], [address]. tel:[phone] [address], [place], [id number], [place] tel:[phone] [place] No Information Mar- 3-201 4 Villareal Chandni. [address] [place] [address], [address], [place], [address], [place]. tel:[phone] Referring Provider: Delon Barry, [address] [place] [address] [address], [place], [address]. tel:[phone] [address], [place], [id number], [place] tel:[phone] [place] No Information 0-201 4 Villareal Chandni. [address] [place] [address], [address], [place], [address], [place]. tel:[phone] Referring Provider: Delon Barry, [address] [place] [address] [address], [place], [address]. tel:[phone] [address], [place], [place], [id number], [place] tel:[phone] [place] No Information Mar- 8-201 4 Villareal Chandni. [address] [place] [address], [address], [place], [address], [place]. tel:[phone] Referring Provider: Delon Barry, [address] [place] [address] [address], [place], [address]. tel:[phone], [place], [place], [id number], tel:[phone] [place] No Information Mar- 6-201 4 Villareal Chandni. [address] [place] [address], [address], [place], [facility], [place]. tel:[phone] Referring Provider: Delon Barry, [address] [place] [address] [address], [place], [address]. tel:[phone] [address], [place], [id number], [place] tel:[phone] [place] No Information 2-201 4 Villareal Chandni. [address] [place] [address], [address], [place], [facility], [place]. tel:[phone] Referring Provider: Delon Barry, [address] [place] [address] [address], [place], [address]. tel:[phone] [address], [place], [id number], [place] tel:[phone] [place] No Information 9-201 4 Villareal Chandni. [address] [place] [address], [address], [place], [facility], [place]. tel:[phone] Referring Provider: Delon Barry, [address] [place] [address] [address], [place], [address]. tel:[phone], [place], [place], [id number], [place] tel:[phone] [place] No Information 0 6-201 4 Villareal Chandni. [address] [place] [address], [address], [place], [facility], . tel:[phone] Referring Provider: Delon Barry, [address] [place] [address] [address], [place], [address]. tel:[phone] [address], [place], [place], [id number], tel:[phone] [place] No Information Karson-0 4-201 4 Villareal Chandni. [address] [place] [address], [address], [place], [facility], . tel: [phone] Referring Provider: Delon Barry, [address] [place] [address] [address], [place], [address]. tel:[phone], [place], [id number], tel:[phone] [place] No Information Mar-0 3-201 4 Villareal Chandni. [address] [place] [address], [address], [place], [facility], . tel:[phone] Referring Provider: Delon Barry, [address] [place] [address] [address], [place], [address]. tel:[phone], [place], [id number], [place] tel:[phone] [place] No Information February-3 0-201 4 Villareal Chandni. [address] [place] [address], [address], [place], [facility], . tel:[phone] Referring Provider: Delon Barry, [address] [place] [address] [address], [place], [address]. tel:[phone], [place], [place], [id number], [place] tel:[phone] [place] No Information February-2 9-201 4 Villareal Chandni. [address] [place] [address], [address], [place], [facility], . tel:[phone] Referring Provider: Delon Barry, [address] [place] [address] [address], [place], [address]. tel:[phone], [place], [place], [id number], tel:[phone] [place] No Information 4 Villarealdevaughn Rhodesi. [address] [facility], [address], [place], [facility], . tel:[phone] Referring Provider: Delon Barry, [address] [place] [address] [address], [place], [address]. tel:[phone], [place], [place], [id number], tel:[phone] [place] Cervicalgia 4 Villareal Chandni. [address] [place] [address], [address], [place], [facility], . [phone] Referring Provider: Delon Barry, [address] [place] [address] [address], [place], [address]. tel:[phone] Family History Family Member Type Diagnosis Age At Onset No Information Payers Payer name Insurance type Covered green party ID Authoriza tion(s) No Information Social [...]
--- OUTSIDE RECORDS SUMMARY | 2025-04-05 18:25 | XMS_ITS | Clinical Summary ---
Author Organization [facility] Address [address] [place] [address] Phone Care Team Providers Care Event Marketing Manager Name Role Phone Unavailable Primary Care [...]
--- OUTSIDE RECORDS SUMMARY | 2025-04-05 18:25 | XMS_ITS | Continuity of Care Document ---
Author Organization [facility] Address [address] [place] [address] Phone Care Team Providers Care Public Relations Specialist Name Role Phone Mary Harrison Unavailable Unavailable Advance Directives Directive Yes / No Effective Date File Name No Information Encounters Encounter Description Practice Location Reason(s) For Visit Diagnoses Date Provider Providers Copied on Encounter [facility], [address], [place], [place], [id number], [place] tel:[phone] [facility] No Information [address] Christy Hernandez. [address] [facility] , [address], [place], [address], [place]. tel:[phone] Referring Provider: [place], [address]. tel:[phone] Family History Family Member Type Diagnosis Age At Onset No Information Payers Payer name Insurance type Covered republican ID Authorflora urszula(s) [facility] CI [id number] Social History Type Description Quantity Date Captured [...]
--- OUTSIDE RECORDS SUMMARY | 2025-04-05 18:25 | XMS_ITS | Encounter Summary ---
Author Organization [facility] Address [address] [place] [address] Care Team Providers Care Process Chemist Name Role Phone Delon Dow DO Primary Care Provider [phone] Encounter Details Date Type Department Care Team ([facility] Contact Info) Description 01/09/2025 Telephone [facility] Primary Care - 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 Gender Identity Not on file Sexual Orientation Not on file documented as of this encounter Plan of Treatment Upcoming Encounters Date Type Department Care Team (Late Contact Info) Description 04/25/2025 7:30 AM CDT Appointment [facility] [address] [place] [address] [place] [address] [facility] [address] [place] [address] 05/11/2025 10:00 AM CDT Office Visit [facility] Delon Carlson [facility] [address] [facility] [address] [place] [id number] [place] [address] [facility] [address] [place] [id number] 11/09/2025 3:20 PM SMASH PIECER Office Visit [facility] Primary Care - [facility], [address] [place] [address] Delon Dow DO [address] [facility] [address] [place] [address] documented as of this encounter Visit Diagnoses Not on filedocumented in this encounter Care Teams Process Chemist Relationship Specialty Start Date End Date Delon Dow DO [address] [address] PCP - General Internal Medicine 11/18/19 documented as of this encounter
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
--- OUTSIDE RECORDS SUMMARY | 2025-04-05 18:27 | XMS_ITS | Continuity of Care Document ---
Author Organization [facility] Address [address] [place] [address] Phone Care Team Providers Care Pathology Supervisor Name Role Phone Mary Harrison Unavailable Unavailable Advance Directives Directive Yes / No Effective Date File Name No Information Encounters Encounter Description Practice Location Reason(s) For Visit Diagnoses Date Provider Providers Copied on Encounter [facility], [address], [place], [place], [id number], [place] tel:[phone] [facility] No Information [address] Christy Hernandez. [address] [facility] , [address], [place], [address], [place]. tel:[phone] Referring Provider: [place], [address]. tel:[phone] Family History Family Member Type Diagnosis Age At Onset No Information Payers Payer name Insurance type Covered green party ID Authorflora urszula(s) [facility] CI [id number] Social History Type Description Quantity Date Captured [...]
--- OUTSIDE RECORDS SUMMARY | 2025-04-05 18:27 | XMS_ITS | Continuity of Care Document ---
Author Organization [facility] Address [address] [place] [address] [address] [place] [address] Phone Care Team Providers Care Continuous Improvement Analyst Name Role Phone Mono Chandni EDWARDS Unavailable [...] Diagnoses Date Provider Providers Copied on Encounter [facility] [facility] [address], [place], [place], [id number], tel:[phone] [place] No Information 0 1-201 4 [address] Chandni. [address] [facility], [address], [place], [place], [facility], . tel: [phone] [facility] [address] [facility], [place], [place], [address], tel:[phone] [place] No Information 0 2-201 4 Vill[address] Chandni. [address] [facility], [address], [place], [place], [facility], [place]. tel: [phone] Referring Provider: Delon Barry, [facility]7 [facility] [address], [place], [address]. tel:[phone] [facility] [address] [place], [place] [address], [place], [place], [id number], tel:[phone] [place] No Information Mar-3 0-201 4 [address] Chandni. [address] [facility], [address], [place], [address], [place]. tel:[phone] Referring Provider: Delon Barry, [address] [place] [address] [address], [place], [address]. tel:[phone] [address], [place], [place], [id number], [place] tel:[phone] [place] No Information Mar- 5-201 4 Vill[address] Chandni. [address] [place] [address], [address], [place], [address], [place]. tel:[phone] Referring Provider: Delon Barry, [address] [place] [address] [address], [place], [address]. tel:[phone] [address], [place], [place], [id number], [place] tel:[phone] [place] No Information Mar- 3-201 4 Villare[address] Chandni. [address] [place] [address], [address], [place], [address], [place]. tel:[phone] Referring Provider: Delon Barry, [address] [place] [address] [address], [place], [address]. tel:[phone] [address], [place], [place], [id number], [place] tel:[phone] [place] No Information 0-201 4 Villare[address] Chandni. [address] [place] [address], [address], [place], [address], [place]. tel:[phone] Referring Provider: Delon Barry, [address] [place] [address] [address], [place], [address]. tel:[phone] [address], [place], [place], [id number], [place] tel:[phone] [place] No Information Mar- 8-201 4 Villare[address] Chandni. [address] [place] [address], [address], [place], [address], [place]. tel:[phone] Referring Provider: Delon Barry, [address] [place] [address] [address], [place], [address]. tel:[phone] [address], [place], [place], [id number], tel:[phone] [place] No Information Mar- 6-201 4 Villare[address] Chandni. [address] [place] [address], [address], [place], [place], [facility], [place]. tel:[phone] Referring Provider: Delon Barry, [address] [place] [address] [address], [place], [address]. tel:[phone] [address], [place], [place], [id number], [place] tel:[phone] [place] No Information 2-201 4 Villare[address] Chandni. [address] [place] [address], [address], [place], [place], [facility], [place]. tel:[phone] Referring Provider: Delon Barry, [address] [place] [address] [address], [place], [address]. tel:[phone] [address], [place], [id number], [place] tel:[phone] [place] No Information 9-201 4 Villareal Chandni. [address] [place] [address], [address], [place], [place], [facility], [place]. tel:[phone] Referring Provider: Delon Barry, [address] [place] [address] [address], [place], [address]. tel:[phone] [address], [place], [place], [id number], [place] tel:[phone] [place] No Information 0 6-201 4 Villare[address] Chandni. [address] [place] [address], [address], [place], [place], [facility], . tel:[phone] Referring Provider: Delon Barry, [address] [place] [address] [address], [place], [address]. tel:[phone] [address], [place], [place], [id number], tel:[phone] [place] No Information Karson-0 4-201 4 Villareal Chandni. [address] [place] [address], [address], [place], [place], [facility], . tel: [phone] Referring Provider: Delon Barry, [address] [place] [address] [address], [place], [address]. tel:[phone], [place], [place], [id number], tel:[phone] [place] No Information Mar-0 3-201 4 Villareal Chandni. [address] [place] [address], [address], [place], [place], [facility], . tel:[phone] Referring Provider: Delon Barry, [address] [place] [address] [address], [place], [address]. tel:[phone], [place], [place], [id number], [place] tel:[phone] [place] No Information February-3 0-201 4 Villareal Chandni. [address] [place] [address], [address], [place], [place], [facility], . tel:[phone] Referring Provider: Delon Barry, [address] [place] [address] [address], [place], [address]. tel:[phone] [address], [place], [place], [address], [place] tel:[phone] [place] No Information February-2 9-201 4 Villareal Chandni. [address] [place] [address], [address], [place], [place], [facility], . tel:[phone] Referring Provider: Delon Barry, [address] [place] [address] [address], [place], [address]. tel:[phone], [place], [place], [id number], tel:[phone] [place] No Information 4 Villarealdevaughn Rhodesi. [address] [facility], [address], [place], [place], [facility], . tel:[phone] Referring Provider: Delon Barry, [address] [place] [address] [address], [place], [address]. tel:[phone], [place], [place], [id number], tel:[phone] [place] Cervicalgia 4 Villareal Chandni. [address] [place] [address], [address], [place], [place], [facility], . [phone] Referring Provider: Delon Barry, [address] [place] [address] [address], [place], [address]. tel:[phone] Family History Family Member Type Diagnosis Age At Onset No Information Payers Payer name Insurance type Covered republican ID Authoriza tion(s) No Information Social History [...]
[2025-04-05 18:28] VITALS: BP 126/73; PULSE 89; RESP 16; TEMP 36.5; O2SAT 99
[2025-04-05 18:42] LABS: EDSTREPNEGPOS1 Negative (Negative)
== END 2025-04-05 19:05 | disposition home or self-care (01) ==
PROVIDERS: Emergency Provider Nurse Practitioner Family
DX: J40 Bronchitis, not specified as acute or chronic (principal); J01.00 Acute maxillary sinusitis, unspecified; E03.9 Hypothyroidism, unspecified; K21.9 Gastro-esophageal reflux disease without esophagitis
CPT/HCPCS: 71046; 87081; 87880; 99213; G0463